=== PATIENT | female | born 1990 | race Caucasian/White ===

== ENCOUNTER 2018-04-29 16:30 | Emergency (ER) | payer BC ==
[2018-04-29 16:44] VITALS: BP 146/105
--- NOTE | 2018-04-29 17:28 | XRAY Report ---
Reason: fall, R wrist pain Procedure Date: 04/29/2018 Accession Number: [id number] / [id number] Procedure: XR - Wrist 4 View RT CPT Code: FULL RESULT: EXAM: RIGHT WRIST RADIOGRAPHY EXAM DATE: 04/29/2018 05:12 PM. CLINICAL HISTORY: Fall, R wrist pain. COMPARISON: None. TECHNIQUE: 4 views. FINDINGS: Bones: Normal. No fractures or bone lesions. Joints: Normal. No subluxations. Soft Tissues: Unremarkable. IMPRESSION: Normal wrist radiography. RAD[facility]
--- NOTE | 2018-04-29 17:34 | ED Physician Documentation ---
PD HPI UPPER EXT INJURY - Stated complaint Stated Complaint: GLF - WRIST INJURY - Chief complaint Chief Complaint: Trauma Ext - History obtained from History obtained from: Patient - History of Present Illness Location: Right, Wrist Type of injury: Fall Where injury occurred: Home Timing - onset: Yesterday - Additonal information Additional information: The patient is a 27-year-old female who fell yesterday on outstretched right hand when she tripped over her dog. She presents now with pain in her right wrist. She denies any other injuries. She is right-hand dominant. Review of Systems Constitutional: reports: Fever Skin: denies: Rash, Abrasion (s) Musculoskeletal: reports: Joint pain (Right wrist.). denies: Neck pain, Back pain Neurologic: denies: Focal weakness, Numbness, Head injury PD PAST MEDICAL HISTORY - Past Medical History Endocrine/Autoimmune: None - Allergies Allergies/Adverse Reactions: Allergies Allergy/AdvReac Type Severity Reaction Status Date / Time metronidazole [From Flagyl] Allergy Nausea Verified 04/29/18 16:37 - Social History Does the pt smoke?: No PD ED PE NORMAL - Vitals Vital signs reviewed: Yes (Initially hypertensive.) - General General: Alert and oriented X 3, Well developed/nourished - HEENT HEENT: Atraumatic - Respiratory Respiratory: No respiratory distress - Derm Derm: No rash - Extremities Extremities: Other (There is mild tenderness to palpation over the radiodorsal aspect of the right wrist. There is no swelling or deformity. There is no break in the integument. She can fully flex and extend her wrist as well as supinate and pronate the forearm. Distal neurovascular is intact.) - Neuro Neuro: Alert and oriented X 3, No motor deficit, No sensory deficit Results - Vitals Vitals: Oxygen O2 Source Room air - Rads (name of study) right wrist Radiology: Prelim report reviewed, EMP read contemporaneously, See rad report (Normal wrist radiography.) PD MEDICAL DECISION MAKING - ED course Complexity details: reviewed results, re-evaluated patient, considered differential, d/w patient ED course: The patient's presentation is most consistent with sprain of the right wrist. There is no evidence of fracture or dislocation on radiographic imaging. Treatment in the emergency department included application of a Velcro wrist splint. I discussed with her the expected course of injury, symptomatic treatment and outpatient follow-up, as well as potentially worrisome signs or symptoms that should prompt reevaluation in the emergency department. Departure - Departure Disposition: 01 Home, Self Care Clinical Impression: Right wrist sprain Qualifiers: Encounter type: initial encounter Qualified Code(s): S63.501A - Unspecified sprain of right wrist, initial encounter Condition: Stable Instructions: ED Sprain Wrist Comments: Wear the wrist splint if it provides comfort. You can use ibuprofen, up to 800 mg 3 times daily. Apply ice pack to your wrist intermittently for the next 3 or 4 days. Let pain be your guide to activity level. Follow-up with your primary physician within 2 weeks. Call to schedule an appointment. Return to the emergency department if you develop significantly increasing pain, numbness or weakness, or otherwise worsening symptoms. Discharge Date/Time: 04/29/18 17:47
== END 2018-04-29 17:47 | disposition home or self-care (01) ==
LOC: ED 16:30
DX: S63.501A Unspecified sprain of right wrist, initial encounter (principal); W01.0XXA Fall on same level from slipping, tripping and stumbling without subsequent striking against object, initial encounter; Y92.009 Unspecified place in unspecified non-institutional (private) residence as the place of occurrence of the external cause
CPT/HCPCS: 99282; 99283

== ENCOUNTER 2018-10-12 08:00 | Outpatient (CLI) | payer BC, MEDICAID ==
[2018-10-12 19:00] LABS: BASOPHILS # (AUTO) 0.1 10^3/uL (0.0-0.1); BASOPHILS % (AUTO) 0.7 %; EOSINOPHILS # (AUTO) 0.2 10^3/uL (0.0-0.7); EOSINOPHILS % (AUTO) 1.2 %; HGB - HEMOGLOBIN 12.2 g/dL (12.0-16.0); LYMPHOCYTES # (AUTO) 4.6 10^3/uL (1.5-3.5); LYMPHOCYTES % (AUTO) 26.6 %; MEAN CORPUSCULAR HEMOGLOBIN 25.5 pg (27.0-31.0); MEAN CORPUSCULAR HGB CONC 30.3 g/dL (32.0-36.0); MEAN CORPUSCULAR VOLUME 84.3 fL (81.0-99.0); MEAN PLATELET VOLUME 9.5 fL (7.9-10.8); MONOCYTES # (AUTO) 1.2 10^3/uL (0.0-1.0); MONOCYTES % (AUTO) 6.8 %; NEUTROPHILS # (AUTO) 11.1 10^3/uL (1.5-6.6); NEUTROPHILS % (AUTO) 63.6 %; PLT - PLATELET COUNT 444 10^3/uL (130-450); RED BLOOD COUNT 4.78 10^6/uL (4.20-5.40); RED CELL DISTRIBUTION WIDTH 13.9 % (12.0-15.0); WHITE BLOOD COUNT 17.5 x10^3/uL (4.8-10.8)
[2018-10-12 19:59] LABS: HB2 TOTAL 13.1 g/dL; HEMOGLOBIN A1C 0.56 g/dL; HEMOGLOBIN A1C % 6.1 % (4.6-6.2)
[2018-10-12 20:03] LABS: ALBUMIN 3.9 g/dL (3.2-5.5); ALBUMIN/GLOBULIN RATIO 1.1 (1.0-2.2); ALKALINE PHOSPHATASE 62 IU/L (42-121); ALT ALANINE AMINOTRANSFERASE 17 IU/L (10-60); AST ASPARTATE AMINOTRANSFERASE 18 IU/L (10-42); BILIRUBIN,TOTAL 0.6 mg/dL (0.2-1.0); BUN - BLOOD UREA NITROGEN 8 mg/dL (6-20); CALCIUM 9.6 mg/dL (8.5-10.3); CARBON DIOXIDE - CO2 23 mmol/L (21-32); CHLORIDE 104 mmol/L (101-111); CHOL/HDL RATIO 4.6 (<4.4); CHOLESTEROL 176 mg/dL; CREATININE 0.7 mg/dL (0.4-1.0); GFR - MDRD 100 (>89); GLUCOSE 87 mg/dL (70-100); HDL CHOLESTEROL 38 mg/dL; LDL CHOLESTEROL,CALCULATED 87 mg/dL; LDL/HDL RATIO 2.3 (<4.4); SODIUM 142 mmol/L (135-145); TOTAL PROTEIN 7.6 g/dL (6.7-8.2); VLDL CHOLESTEROL 51 mg/dL
== END 2018-10-12 23:59 | disposition home or self-care (01) ==
LOC: LAB.WCP 08:00
PROVIDERS: ATTEND Physician Assistant
DX: E11.42 Type 2 diabetes mellitus with diabetic polyneuropathy (principal); E78.5 Hyperlipidemia, unspecified
CPT/HCPCS: 36415; 80053; 80061; 82607; 83036; 83721; 85025

== ENCOUNTER 2018-10-19 18:54 | Emergency (ER) | payer BC, MEDICAID ==
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
[2018-10-19 21:59] VITALS: BP 144/98
== END 2018-10-19 21:58 | disposition home or self-care (01) ==
LOC: ED 18:54
DX: S92.531A Displaced fracture of distal phalanx of right lesser toe(s), initial encounter for closed fracture (principal); S90.121A Contusion of right lesser toe(s) without damage to nail, initial encounter; W20.8XXA Other cause of strike by thrown, projected or falling object, initial encounter; E10.40 Type 1 diabetes mellitus with diabetic neuropathy, unspecified; I10 Essential (primary) hypertension
CPT/HCPCS: 99282; 99283

== ENCOUNTER 2018-12-13 08:00 | Outpatient (CLI) | payer BC, MEDICAID ==
[2018-12-14 22:18] LABS: TRICHOMONAS VAGINALIS DNA NEGATIVE (NEGATIVE)
== END 2018-12-13 23:59 | disposition home or self-care (01) ==
LOC: LAB.R 08:00
PROVIDERS: ATTEND Obstetrics & Gynecology
DX: R10.2 Pelvic and perineal pain (principal)
CPT/HCPCS: 87491; 87591; 87661

== ENCOUNTER 2018-12-14 16:32 | Outpatient (CLI) | payer MEDICAID ==
--- NOTE | 2018-12-15 10:20 | XRAY Report ---
Reason: UNSPECIFIED FRACTURE OF UNSPECIFIED TOES, INITIAL Procedure Date: 12/14/2018 Accession Number: [id number] / [id number] Procedure: XR - Foot 3 View RT CPT Code: FULL RESULT: EXAM: RIGHT FOOT RADIOGRAPHY EXAM DATE: 12/14/2018 05:09 PM. CLINICAL HISTORY: Continued pain after right fourth toe fracture for 6 weeks. COMPARISON: FOOT 3 VIEW RT 10/19/2018 8:34 PM. TECHNIQUE: 3 views. FINDINGS: Bones: Mild posterior and inferior calcaneal spurring is noted. The distal phalangeal fracture of the fourth distal phalanx remains nonunited with partial interval osseous resorption and no evidence of osseous bridging. No new fractures or bone lesions. Joints: Normal. No subluxations. Soft Tissues: Normal. No soft tissue swelling. IMPRESSION: Nonunited fracture. [facility]
== END 2018-12-14 16:33 | disposition home or self-care (01) ==
LOC: DI 16:32
PROVIDERS: ATTEND Physician Assistant
DX: S92.5 Fracture of lesser toe(s) (principal)

== ENCOUNTER 2018-12-20 08:49 | Outpatient (CLI) | payer MEDICAID ==
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
== END 2018-12-20 08:50 | disposition home or self-care (01) ==
LOC: DI 08:49
PROVIDERS: ATTEND Physician Assistant
DX: N91.2 Amenorrhea, unspecified (principal)
CPT/HCPCS: 76830; 76856

== ENCOUNTER 2018-12-27 11:30 | Outpatient (CLI) | payer MEDICAID | END 2018-12-27 11:31 | disposition home or self-care (01) | LOC: LAB 11:30 | PROVIDERS: ATTEND Obstetrics & Gynecology | DX: Z01.818 Encounter for other preprocedural examination (principal); N84.0 Polyp of corpus uteri | CPT/HCPCS: 86850; 86900; 86901 ==

== ENCOUNTER 2018-12-28 05:58 | Day surgery (SDC) | payer MEDICAID ==
[2018-12-28] MEDS ORDERED: ROCURONIUM 50 MG/5 ML VIAL IVP ONE (05:59)
[2018-12-28] MEDS ORDERED: GLYCOPYRROLATE 1 MG/5 ML VIAL IVP ONE (05:59)
[2018-12-28] MEDS ORDERED: KETOROLAC 30 MG/ML VIAL IVP ONE (05:59)
[2018-12-28] MEDS ORDERED: NEOSTIGMINE 1 MG/1 ML 10 ML MDV IVP ONE (05:59)
[2018-12-28] MEDS ORDERED: DEXAMETHASONE 4 MG/ML VIAL IVP ONE (05:59)
[2018-12-28] MEDS ORDERED: MIDAZOLAM 2 MG/2 ML VIAL IVP ONE (05:59)
[2018-12-28] MEDS ORDERED: CEFAZOLIN SODIUM IN 0.9 % NACL 2 GM/100 ML BAG IV ONE (06:34)
[2018-12-28 06:50] LABS: HCG UR QUAL NEGATIVE
[2018-12-28] MEDS ORDERED: LACTATED RINGERS 1,000 ML IV ONE ×4 (07:00→08:59)
--- NOTE | 2018-12-28 07:15 | ANESTHESIA ---
Pre-Anesthesia VS, & Labs - Diagnosis endometrial polyps - Procedure hysteroscopy, DnC Vital Signs: Temp Pulse Resp BP Pulse Ox 36.4 C L 93 18 149/89 H 98 12/28/18 06:20 12/28/18 06:20 12/28/18 06:20 12/28/18 06:20 12/28/18 06:20 Height 5 ft 7 in Weight (kg) 149.3 kg Body Mass Index 51.7 - Is Patient ?: No (HCG negative) - Lab Results Current Lab Results: Laboratory Tests 12/28/18 07:06: POC Whole Bld Glucose 120 H Home Medications and Allergies Home Medications: Ambulatory Orders traMADol [Ultram] 50 mg PO Q4-6H 12/27/18 Gabapentin 600 mg PO QPM 12/14/18 traMADol [Ultram] 50 mg PO Q4-6H 12/27/18 Allergies/Adverse Reactions: Allergies Allergy/AdvReac Type Severity Reaction Status Date / Time metronidazole [From Flagyl] Allergy projectile Verified 12/27/18 11:11 vomiting Anes History & Medical History - Anesthetic History Anesthesia Complications: reports: No previous complications Family history of Anesthesia Complications: Denies Family history of Malignant Hyperthermia: Denies - Medical History Cardiovascular: reports: Hypertension Pulmonary: reports: None Gastrointestinal: reports: Other (IBS. has had multiple colonoscopies) Urinary: reports: None Neuro: reports: None Musculoskeletal: reports: None Endocrine/Autoimmune: reports: Type 1 diabetes (denies taking any medications. reports a1c 6.0. bs 120) Blood Disorders: reports: None Skin: reports: None Smoking Status: Never smoker Psychosocial: reports: Anxiety - Surgical History General: Cholecystectomy Eyes Ears Nose Throat (EENT): Tonsil/Adenoidectomy Exam Mouth Openin Fingerbreadth Mallampati classification: I Thyromental Distance: 4-6 cm Respiratory: Lungs clear, Normal breath sounds, No respiratory distress, No accessory muscle use Cardiovascular: Regular rate, Normal S1, Normal S2, No murmurs Abdomen: Normal bowel sounds, Soft, No tenderness, No hepatospenomegaly, No masses Extremities: No clubbing, No cyanosis, No edema, Normal pulses, No tenderness/swelling Neurological: Normal gait, Normal speech, Strength at 5/5 X4 ext, Normal tone, Sensation intact, Cranial nerves 3-12 NL, Reflexes 2+ Mental/Cognitive Status: Alert/Oriented X3, Normal for patient Cognitive Status: Within normal limits Plan Anesthesia Type: General Consent for Procedure(s) Verified and Reviewed: Yes Code Status: Attempt Resuscitation ASA classification: 2-Mild systemic disease (BMI 51) Is this case an emergency?: No
[2018-12-28] MEDS ORDERED: BUPIVACAINE 0.5%-EPI 1:200000 PF 30 ML VIAL ONE (07:22)
[2018-12-28] MEDS ORDERED: BUPIVACAINE 0.5%-EPI 1:200000 PF 30 ML VIAL SUBQ ONE (08:31)
[2018-12-28] MEDS ORDERED: LORazepam 2 MG/ML VIAL IVP PRN (09:03)
[2018-12-28] MEDS ORDERED: ONDANSETRON 4 MG/2 ML VIAL IVP PRN (09:03)
[2018-12-28] MEDS ORDERED: HYDROcod/ACETAM 5/325 MG TABLET PO PRN (09:03)
[2018-12-28] MEDS ORDERED: oxyCODONE 5 MG TABLET PO PRN (09:03)
--- NOTE | 2018-12-28 09:09 | OPERATIVE REPORT ---
Operative Report - General Procedure Date: 12/28/18 Planned Procedure: Hysterscopy with D&C Pre-Op Diagnosis: Endometrial polyp menorrhagia Procedure Performed: Hysterscopic resection of endometrial polyp. D&C Post Op Diagnosis: menorrhagia Endometrial polyp - Procedure Note Primary Surgeon: Edenilson Kingsley MD Anesthesia Provider: Divya Beltran Anesthesia Technique: General ET tube Pathology: Endometrial Polyp IV Fluids (mL): 1,000 Estimated Blood Loss (mL): 5 Indications: menorrhagia Findings: Anterior attached endometrial Polyp Complications: none hysterscopic fluid deficit 200 ml
[2018-12-28] MEDS ORDERED: ACETAMINOPHEN 1,000 MG/100 ML 100 ML IV ONE (09:19)
[2018-12-28] MEDS ORDERED: HYDROmorphone 1 MG/ML CARPUJECT ONE (09:19)
[2018-12-28] MEDS ORDERED: fentaNYL 100 MCG/2 ML VIAL ONE (09:19)
--- NOTE | 2018-12-28 10:40 | OPERATIVE REPORT ---
DATE OF SERVICE: 12/28/2018 Physician: Edenilson Kingsley MD PREOPERATIVE DIAGNOSES: Menorrhagia, endometrial polyp. POSTOPERATIVE DIAGNOSES: Menorrhagia, endometrial polyp. PROCEDURE PERFORMED: Hysteroscopic resection of submucosal endometrial polyp. SURGEON: Edenilson Kingsley MD ANESTHESIA: Karis Beltran CRNA ANESTHETIC: General via endotracheal tube. IV FLUIDS: 1000 mL ESTIMATED BLOOD LOSS: Minimal. FLUID DEFICIT: 200 mL FINDINGS: Pelvic examination was unrewarding secondary to abdominal wall thickness. The uterus was sounded to 8 cm. Upon introducing the hysteroscope, there was evidence of an endometrial polyp, whic h was attached to the anterior portion of the uterus. PROCEDURE: Following adequate endotracheal anesthesia, patient was placed in the dorsal lithotomy po sition in Donald stirrups. She was then prepped and draped in the usual fashion. A timeout was perfo rmed, patient concerns were addressed. Because of her extra weight, she was given another gram of An cef. At this point, a speculum was placed in the vagina. The cervix was visualized and grasped with a single-tooth tenaculum. The uterus was then sounded to 8 cm. A 6 mm intrauterine dilator was the n placed, and there was evidence of the cervix was already being dilated. A video hysteroscope was p laced. Both corners were visualized and noted to be free of disease. There was evidence of a large anterior polyp. The remainder of the endometrial cavity appeared to be free of additional polyps at this point, the hysteroscopic resectoscope was introduced. The endometrial cavity and polyp were all cleared. The cervix was then noted to already be dilated to 11 mm. The endometrial cavity was then sharply curetted in all 4 quadrants. The hysteroscope was reintroduced. The endometrial cavity was free of polyps or evidence of any other further tissue. At this point, the procedure was terminated . The cervix was released from the single-tooth tenaculum. Patient tolerated the procedure well and was taken to recovery in stable condition. Sponge and needle counts were correct. TD: 12/28/2018 09:18
[2018-12-28 11:28] VITALS: BP 110/68
== END 2018-12-28 05:59 | disposition home or self-care (01) ==
LOC: SDS 05:58
PROVIDERS: ATTEND Obstetrics & Gynecology
PROC: 0UDB7ZZ Extraction of Endometrium, Via Natural or Artificial Opening (ICD-10-PCS; 2018-12-28)
PROC: 0UB98ZZ Excision of Uterus, Via Natural or Artificial Opening Endoscopic (ICD-10-PCS; principal; 2018-12-28 07:30)
DX: N84.0 Polyp of corpus uteri (principal); N92.0 Excessive and frequent menstruation with regular cycle; E66.9 Obesity, unspecified; I10 Essential (primary) hypertension; Z79.899 Other long term (current) drug therapy; Z68.43 Body mass index [BMI] 50.0-59.9, adult; Z86.39 Personal history of other endocrine, nutritional and metabolic disease
CPT/HCPCS: 58558; 81025; 86850; 86900; 86901; A9270; J0131; J0690; J1170; J7120

== ENCOUNTER 2019-05-18 17:24 | Emergency (ER) | payer MEDICAID ==
[2019-05-18] MEDS ORDERED: KETOROLAC 30 MG/ML VIAL IVP STA (17:43)
[2019-05-18 18:10] LABS: BASOPHILS # (AUTO) 0.2 10^3/uL (0.0-0.1); BASOPHILS % (AUTO) 0.6 %; HGB - HEMOGLOBIN 13.3 g/dL (12.0-16.0); LYMPHOCYTES # (AUTO) 2.1 10^3/uL (1.5-3.5); MEAN CORPUSCULAR HEMOGLOBIN 25.9 pg (27.0-31.0); MEAN CORPUSCULAR HGB CONC 32.4 g/dL (32.0-36.0); MONOCYTES # (AUTO) 1.9 10^3/uL (0.0-1.0); MONOCYTES % (AUTO) 6.1 %; NEUTROPHILS # (AUTO) 25.9 10^3/uL (1.5-6.6); PLT - PLATELET COUNT 378 10^3/uL (130-450); RED BLOOD COUNT 5.14 10^6/uL (4.20-5.40); RED CELL DISTRIBUTION WIDTH 13.3 % (12.0-15.0); WHITE BLOOD COUNT 30.5 x10^3/uL (4.8-10.8)
[2019-05-18 18:18] LABS: CALCIUM 9.1 mg/dL (8.5-10.3); CREATININE 0.8 mg/dL (0.4-1.0)
--- NOTE | 2019-05-18 18:20 | ED Physician Documentation ---
<DaisyKev downs - Last Filed: 05/18/19 18:46> History of Present Illness - Stated complaint Stated Complaint: N/V/D, SHAKES - Chief complaint Chief Complaint: Abd Pain - History obtained from History obtained from: Patient (28-year-old female comes in today with chief complaint nausea, vomiting, "I just feel terrible". She states that it started occurring around 1:00 this afternoon with chills, and nausea. She did vomit once at home. She feels warm, but did not take her temperature at home. She is febrile here in the ER today 39.4. 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 She does state that she was a diabetic several years ago but she is been off her medications she does not check her sugars daily.) Review of Systems Constitutional: reports: Fever, Chills. denies: Fatigue Eyes: reports: Reviewed and negative Ears: reports: Reviewed and negative Nose: reports: Reviewed and negative Throat: reports: Reviewed and negative Cardiac: denies: Chest pain / pressure, Palpitations GI: reports: Nausea, Vomiting Skin: denies: Rash, Lesions PD PAST MEDICAL HISTORY - Past Medical History Endocrine/Autoimmune: Type 2 diabetes, Other (Bone biopsy approximately 1 month ago, Came back normal..Patient states her white blood cells normally however around 18,000.) - Allergies Allergies/Adverse Reactions: Allergies Allergy/AdvReac Type Severity Reaction Status Date / Time metronidazole [From Flagyl] Allergy Unknown Verified 05/18/19 17:37 PD ED PE NORMAL - Vitals Vital signs reviewed: Yes - General General: Alert and oriented X 3, Well developed/nourished - HEENT HEENT: Atraumatic, PERRL, EOMI, Ears normal, Moist mucous membranes, Pharynx benign - Neck Neck: No adenopathy - Cardiac Cardiac: RRR, No murmur - Respiratory Respiratory: No respiratory distress, Clear bilaterally - Abdomen Abdomen: Soft, Non tender, Non distended - Back Back: No CVA TTP - Derm Derm: Normal color, Warm and dry, No rash Departure - Departure Disposition: Home, Self Care Clinical Impression: Fever Qualifiers: Fever type: unspecified Qualified Code(s): R50.9 - Fever, unspecified Leukocytosis Qualifiers: Leukocytosis type: unspecified Qualified Code(s): D72.829 - Elevated white blood cell count, unspecified Condition: Stable Instructions: ED Fever Unconf Cause, ED Fever Control Follow-Up: Elizabeth Weir PA [Primary Care Provider] - Tomorrow <Torres Carter - Last Filed: 05/18/19 20:54> Results - Vitals Vitals: Vital Signs - 24 hr 05/18/19 05/18/19 05/18/19 17:30 19:22 20:17 Temperature 39.4 C H 98.3 C H 37.2 C Heart Rate 120 H 118 H Respiratory 20 20 Rate Blood Pressure 128/75 O2 Saturation 96 93 Oxygen O2 Source Room air - Labs Labs: Laboratory Tests 05/18/19 05/18/19 05/18/19 18:01 18:01 18:01 WBC 30.5 H RBC 5.14 Hgb 13.3 Hct 41.1 MCV 80.0 L MCH 25.9 L MCHC 32.4 RDW 13.3 Plt Count 378 MPV 9.0 Neut # (Auto) 25.9 H Lymph # (Auto) 2.1 [place] # (Auto) 1.9 H Eos # (Auto) 0.0 Baso # (Auto) 0.2 H Absolute Nucleated RBC 0.00 Band Neuts % (Manual) Not Reportable Abnorm Lymph % (Manual) Not Reportable Nucleated RBC % 0.0 Neutrophils # (Manual) Not Reportable Lymphocytes # (Manual) Not Reportable Monocytes # (Manual) Not Reportable Eosinophils # (Manual) Not Reportable Basophils # (Manual) Not Reportable Differential Comment MANUAL=AUTO DIFF Manual Slide Review Indicated Platelet Estimate NORMAL (130-450,000) Platelet Morphology NORMAL APPEARANCE RBC Morph Micro Appear NORMAL APPEARANCE Sodium 135 Potassium 3.7 Chloride 98 L Carbon Dioxide 24 Anion Gap 13.0 BUN 11 Creatinine 0.8 Estimated GFR (MDRD) 85 L Glucose 158 H Lactic Acid 2.5 H Calcium 9.1 Total Bilirubin Direct Bilirubin AST ALT Alkaline Phosphatase Total Protein Albumin Globulin Lipase Urine Color Urine Clarity Urine pH Ur Specific [place] Urine Protein Urine Glucose (UA) Urine Ketones Urine Occult Blood Urine Nitrite Urine Bilirubin Urine Urobilinogen Ur Leukocyte Esterase Ur Microscopic Review Urine Culture Comments Urine HCG, Qual Influenza A (Rapid) Influenza B (Rapid) 05/18/19 05/18/19 05/18/19 18:01 18:10 20:05 WBC RBC Hgb Hct MCV MCH MCHC RDW Plt Count MPV Neut # (Auto) Lymph # (Auto) [place] # (Auto) Eos # (Auto) Baso # (Auto) Absolute Nucleated RBC Band Neuts % (Manual) Abnorm Lymph % (Manual) Nucleated RBC % Neutrophils # (Manual) Lymphocytes # (Manual) Monocytes # (Manual) Eosinophils # (Manual) Basophils # (Manual) Differential Comment Manual Slide Review Platelet Estimate Platelet Morphology RBC Morph Micro Appear Sodium Potassium Chloride Carbon Dioxide Anion Gap BUN Creatinine Estimated GFR (MDRD) Glucose Lactic Acid Calcium Total Bilirubin 0.7 Direct Bilirubin < 0.1 L AST 22 ALT 15 Alkaline Phosphatase 78 Total Protein 8.0 Albumin 4.0 Globulin 4.0 Lipase 20 L Urine Color DARK YELLOW Urine Clarity CLEAR Urine pH 7.0 Ur Specific [place] 1.010 Urine Protein TRACE Urine Glucose (UA) NEGATIVE Urine Ketones NEGATIVE Urine Occult Blood NEGATIVE Urine Nitrite NEGATIVE Urine Bilirubin NEGATIVE Urine Urobilinogen 0.2 (NORMAL) Ur Leukocyte Esterase NEGATIVE Ur Microscopic Review NOT INDICATED Urine Culture Comments NOT INDICATED Urine HCG, Qual Influenza A (Rapid) Negative Influenza B (Rapid) Negative 05/18/19 20:05 WBC RBC Hgb Hct MCV MCH MCHC RDW Plt Count MPV Neut # (Auto) Lymph # (Auto) [place] # (Auto) Eos # (Auto) Baso # (Auto) Absolute Nucleated RBC Band Neuts % (Manual) Abnorm Lymph % (Manual) Nucleated RBC % Neutrophils # (Manual) Lymphocytes # (Manual) Monocytes # (Manual) Eosinophils # (Manual) Basophils # (Manual) Differential Comment Manual Slide Review Platelet Estimate Platelet Morphology RBC Morph Micro Appear Sodium Potassium Chloride Carbon Dioxide Anion Gap BUN Creatinine Estimated GFR (MDRD) Glucose Lactic Acid Calcium Total Bilirubin Direct Bilirubin AST ALT Alkaline Phosphatase Total Protein Albumin Globulin Lipase Urine Color Urine Clarity Urine pH Ur Specific [place] 1.010 Urine Protein Urine Glucose (UA) Urine Ketones Urine Occult Blood Urine Nitrite Urine Bilirubin Urine Urobilinogen Ur Leukocyte Esterase Ur Microscopic Review Urine Culture Comments Urine HCG, Qual NEGATIVE Influenza A (Rapid) Influenza B (Rapid) PD MEDICAL DECISION MAKING - ED course Complexity details: reviewed old records (no previous labs to compare patients elevated wbc.), re-evaluated patient (20:42 patient revaluated, she is afebrile, HR in the 90s on PE, ua unremarkable, neg flu, neg cxr, patient well appearing on exam, i did offer admission for observation however patient would like to be discharged home and follow up with her heme/onc tomorrow. patient has medical decision making capability and capacity and accepts all risks to include and or permanent disability. ), other (patient originally seen by the [facility]. please see note. Patient reports she has a known history of chronically elevated wbc and has been seen by heme/onc and states she has had a normal bone marrow biopsy. she reports to me 2 loose bms/1 episode of emesis and now feels better after receiving IVF. she is now afebrile and is feeling better and is requesting to be dcd home. she denies any recent travel outside the country, denies any abx use, denies bloody diarrhea, denies abd pain, denies freire/rash/neck pain. her lactate was noted to be elevated and an elevated wbc with no previous to compare to, patient is requesting to go home at this point. i feel this is reasonable, the patient states she has f/u tomorrow with her pcp as well as her heme/onc provider. )
[2019-05-18] MEDS ORDERED: SODIUM CHLORIDE 0.9% 2,000 ML IV ONE (18:35)
[2019-05-18 18:37] LABS: DIFFERENTIAL COMMENT MANUAL=AUTO DIFF; PLATELET ESTIMATE, MANUAL NORMAL (130-450,000) (NORMAL); PLATELET MORPHOLOGY NORMAL APPEARANCE (NORMAL); RBC MORPHOLOGY (MULTIPLE) NORMAL APPEARANCE (NORMAL)
[2019-05-18 18:51] LABS: ALKALINE PHOSPHATASE 78 IU/L (42-121); ALT ALANINE AMINOTRANSFERASE 15 IU/L (10-60); AST ASPARTATE AMINOTRANSFERASE 22 IU/L (10-42); BILIRUBIN,TOTAL 0.7 mg/dL (0.2-1.0); LIPASE 20 U/L (22-51)
[2019-05-18 18:52] LABS: BILIRUBIN,DIRECT < 0.1 mg/dL (0.1-0.5)
--- NOTE | 2019-05-18 18:55 | XRAY Report ---
Reason: cough Procedure Date: 05/18/2019 Accession Number: [id number] / [id number] Procedure: XR - Chest 2 View X-Ray CPT Code: 90834 Final Report FULL RESULT: EXAM: CHEST RADIOGRAPHY EXAM DATE: 05/18/2019 06:42 PM. CLINICAL HISTORY: Cough. Nausea, vomiting, dizziness, fever today. COMPARISON: None. TECHNIQUE: 2 views. FINDINGS: Lungs/Pleura: No focal opacities evident. No peribronchial cuffing or interstitial abnormality. No pleural effusion. No pneumothorax. Normal volumes. Mediastinum: Heart and mediastinal contours are unremarkable. Other: No gaseous distention of the stomach. No pneumoperitoneum. IMPRESSION: Normal 2-view chest radiography. [facility]
[2019-05-18 20:25] LABS: BILIRUBIN,URINE NEGATIVE (NEGATIVE); GLUCOSE, URINE (UA) NEGATIVE (NEGATIVE); KETONES,URINE (UA) NEGATIVE (NEGATIVE); LEUKOCYTE ESTERASE, URINE NEGATIVE (NEGATIVE); NITRITE,URINE NEGATIVE (NEGATIVE); OCCULT BLOOD,URINE NEGATIVE (NEGATIVE); PROTEIN,URINE TRACE mg/dL (NEGATIVE); UROBILINOGEN,URINE 0.2 (NORMAL) E.U./dL (NORMAL)
[2019-05-18 20:28] LABS: CLARITY,URINE CLEAR (CLEAR)
[2019-05-18 20:29] LABS: HCG UR QUAL NEGATIVE
[2019-05-18 20:53] VITALS: BP 114/61
== END 2019-05-18 20:55 | disposition home or self-care (01) ==
LOC: ED 17:24 → MERGE 17:24 → ED 20:55
DX: R50.9 Fever, unspecified (principal); D72.829 Elevated white blood cell count, unspecified; E11.9 Type 2 diabetes mellitus without complications
CPT/HCPCS: 36415; 71046; 80048; 80076; 81001; 81003; 81025; 83605; 83690; 85025; 87040; 87086; 87275; 87276; 96361; 96374; 99284

== ENCOUNTER 2019-05-19 07:21 | Emergency (ER) | payer MEDICAID ==
[2019-05-19] MEDS ORDERED: cefTRIAXone 1 GM VIAL IM STA (07:45)
[2019-05-19] MEDS ORDERED: LIDOCAINE 1% 2 ML VIAL MC ONE (07:45)
--- NOTE | 2019-05-19 07:53 | ED Physician Documentation ---
History of Present Illness - Stated complaint Stated Complaint: L LEG PX AND SWELLING - Chief complaint Chief Complaint: Ext Problem - History obtained from History obtained from: Patient - History of Present Illness Timing: Today Pain level max: 3 Pain level now: 3 - Additonal information Additional information: 28-year-old female presents the emergency department stating that she has swelling to the left lower extremity. She states redness as well that she noticed this morning. Seen here last night for feeling unwell, emesis x1 and diarrhea x2. She has a known chronic leukocytosis. She states she is feeling better this morning but noticed the redness on her leg today. She states it was not red last night. Nothing makes it better or worse. Review of Systems Ten Systems: 10 systems reviewed and negative Constitutional: denies: Fever, Chills Throat: denies: Sore throat Cardiac: denies: Chest pain / pressure Respiratory: denies: Cough GI: denies: Abdominal Pain, Nausea, Vomiting, Diarrhea Skin: denies: Rash Musculoskeletal: denies: Neck pain, Back pain Neurologic: denies: Headache PD PAST MEDICAL HISTORY - Past Medical History Past Medical History: Yes Endocrine/Autoimmune: Type 2 diabetes, Other - Past Surgical History Past Surgical History: No HEENT: Tonsil/Adenoidectomy - Present Medications Home Medications: Ambulatory Orders Medication Instructions Recorded Confirmed Clindamycin HCl [Clindamycin 300MG 300 mg PO Q6H #40 capsule 05/19/19 CAP] - Allergies Allergies/Adverse Reactions: Allergies Allergy/AdvReac Type Severity Reaction Status Date / Time metronidazole [From Flagyl] Allergy Unknown Verified 05/18/19 17:37 - Social History Does the pt smoke?: No Smoking Status: Never smoker Does the pt drink ETOH?: No Does the pt have substance abuse?: No - Immunizations Immunizations: TDAP >10years/unknown PD ED PE NORMAL - Vitals Vital signs reviewed: Yes - General General: Alert and oriented X 3, No acute distress, Well developed/nourished - HEENT HEENT: Moist mucous membranes - Neck Neck: Supple, no meningeal sign - Cardiac Cardiac: RRR, Strong equal pulses - Respiratory Respiratory: No respiratory distress, Clear bilaterally - Abdomen Abdomen: Soft, Non tender, Non distended - Derm Derm: Warm and dry - Extremities Extremities: Other (Erythema to the anterior and medial aspect of the left calf, this extends from the knee to the ankle. Blanches easily. Warm. No fluctuance or abscess. Neurovascularly intact. No calf tenderness) - Neuro Neuro: Alert and oriented X 3 - Psych Psych: Normal mood, Normal affect Results - Vitals Vitals: Vital Signs - 24 hr 05/19/19 07:34 Temperature 37.4 C Heart Rate 117 H Respiratory 18 Rate Blood Pressure 133/84 H O2 Saturation 99 Oxygen O2 Source Room air PD MEDICAL DECISION MAKING - ED course Complexity details: reviewed old records, considered differential, d/w patient ED course: Patient with a left lower extremity cellulitis. No evidence of DVT. Given Rocephin here. Will place on clindamycin for home as she is sulfa allergic. We will have her monitor her leg closely. Wound edges were marked and she was given strict return precautions. Patient counseled regarding signs and symptoms for which I believe and urgent re-evaluation would be necessary. Patient with good understanding of and agreement to plan and is comfortable going home at this time This document was made in part using voice recognition software. While efforts are made to proofread this document, sound alike and grammatical errors may occur. Departure - Departure Disposition: Home, Self Care Clinical Impression: Left leg cellulitis Condition: Good Instructions: ED Infec Skin Cellulitis Follow-Up: Elizabeth Weir PA [Primary Care Provider] - Within 3 Days Prescriptions: Clindamycin HCl [Clindamycin 300MG CAP] 300 mg PO Q6H #40 capsule Comments: Take all antibiotics until gone. You should notice that the redness is decreasing by tomorrow. Return sooner if you develop more fevers, the redness is extending up your leg or you are not improving as expected. Start the clindamycin today as well.
[2019-05-19 08:41] VITALS: BP 144/88
== END 2019-05-19 08:42 | disposition home or self-care (01) ==
LOC: MERGE 07:21 → ED 07:21
DX: L03.116 Cellulitis of left lower limb (principal); E11.9 Type 2 diabetes mellitus without complications
CPT/HCPCS: 96372; 99283; 99284

== ENCOUNTER 2019-05-21 17:54 | Inpatient (IN) | payer MEDICAID ==
[2019-05-21 18:13] LABS: BASOPHILS # (AUTO) 0.1 10^3/uL (0.0-0.1); BASOPHILS % (AUTO) 0.8 %; EOSINOPHILS # (AUTO) 0.1 10^3/uL (0.0-0.7); EOSINOPHILS % (AUTO) 0.9 %; HGB - HEMOGLOBIN 11.7 g/dL (12.0-16.0); LYMPHOCYTES # (AUTO) 3.1 10^3/uL (1.5-3.5); LYMPHOCYTES % (AUTO) 22.5 %; MEAN CORPUSCULAR HGB CONC 29.7 g/dL (32.0-36.0); MEAN CORPUSCULAR VOLUME 84.2 fL (81.0-99.0); MEAN PLATELET VOLUME 9.4 fL (7.9-10.8); MONOCYTES # (AUTO) 1.7 10^3/uL (0.0-1.0); NEUTROPHILS # (AUTO) 8.8 10^3/uL (1.5-6.6); NEUTROPHILS % (AUTO) 63.1 %; PLT - PLATELET COUNT 357 10^3/uL (130-450); RED BLOOD COUNT 4.68 10^6/uL (4.20-5.40); RED CELL DISTRIBUTION WIDTH 14.2 % (12.0-15.0); WHITE BLOOD COUNT 13.9 x10^3/uL (4.8-10.8)
[2019-05-21] MEDS ORDERED: VANCOMYCIN INJ 2 GM in SODIUM CHLORIDE 0.9% 500 ML IV STA (18:19)
[2019-05-21] MEDS ORDERED: ACYCLOVIR 200 MG CAPSULE PO STA (18:20)
[2019-05-21] MEDS ORDERED: HYDROmorphone 1 MG/ML CARPUJECT IVP STA (18:22)
--- NOTE | 2019-05-21 18:28 | ED Physician Documentation ---
History of Present Illness - Stated complaint Stated Complaint: left leg px - Chief complaint Chief Complaint: Ext Problem - History obtained from History obtained from: Patient (28-year-old woman with chronic leukocytosis diagnosed in her teenage years. She is had 2- bone marrow biopsies per her and her baseline white count is 18,000. She was seen here 3 days ago with shaking chills nausea and vomiting. She had a white count of 30,000 but no source was found. Blood cultures obtained on that day have been no growth to date. She was here the next morning and developed a left lower extremity cellulitis which was treated with Rocephin and subsequently a prescription of clindamycin which she has been taking since. Despite that she continues to have increasing pain and swelling of the left lower extremity with some left groin pain.) Review of Systems Ten Systems: 10 systems reviewed and negative Constitutional: reports: Fever, Chills Nose: denies: Rhinorrhea / runny nose, Congestion Throat: denies: Dental pain / toothache, Sore throat Cardiac: denies: Chest pain / pressure, Palpitations Respiratory: denies: Dyspnea, Cough GI: denies: Abdominal Pain PD PAST MEDICAL HISTORY - Past Medical History Cardiovascular: Hypertension Respiratory: None Neuro: None Endocrine/Autoimmune: Type 1 diabetes, Type 2 diabetes, Other 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 : None HEENT: None Psych: None Musculoskeletal: None Derm: None - Past Surgical History Past Surgical History: No General: Cholecystectomy HEENT: Tonsil/Adenoidectomy - Present Medications Home Medications: Ambulatory Orders Medication Instructions Recorded Confirmed Gabapentin 600 mg PO QPM 12/14/18 01/18/19 traMADol [Ultram] 50 mg PO Q4-6H 12/27/18 01/18/19 Clindamycin HCl [Clindamycin 300MG 300 mg PO Q6H #40 capsule 05/19/19 CAP] - Allergies Allergies/Adverse Reactions: Allergies Allergy/AdvReac Type Severity Reaction Status Date / Time metronidazole [From Flagyl] Allergy projectile Verified 05/19/19 09:33 vomiting - Social History Does the pt smoke?: No Smoking Status: Never smoker Does the pt drink ETOH?: No Does the pt have substance abuse?: No - Immunizations Immunizations are current?: Yes Immunizations: TDAP >10years/unknown - POLST Patient has POLST: No PD ED PE NORMAL - Vitals Vital signs reviewed: Yes - General General: Alert and oriented X 3, Other (She appears uncomfortable from the pain) - HEENT HEENT: PERRL, EOMI, Other (She has periorbital herpes simplex) - Neck Neck: Supple, no meningeal sign, No bony TTP - Cardiac Cardiac: RRR, No murmur - Respiratory Respiratory: No respiratory distress, Clear bilaterally - Abdomen Abdomen: Normal bowel sounds, Soft, Non tender - Back Back: No CVA TTP, No spinal TTP - Derm Derm: Normal color, Warm and dry - Extremities Extremities: Other (She has significant edema of the left lower extremity with a cellulitis of the anterior part of the left leg running from ankle up to the knee. It is basically at the borders that were marked 2 days ago not last not further but she said the swelling is worse.) - Neuro Neuro: Alert and oriented X 3, Normal speech Results - Vitals Vitals: Vital Signs - 24 hr 05/21/19 17:55 Temperature 37 C Heart Rate 99 Respiratory 16 Rate Blood Pressure 144/96 H O2 Saturation 97 Oxygen O2 Source Room air - Labs Labs: Laboratory Tests 05/21/19 18:00 WBC 13.9 H RBC 4.68 Hgb 11.7 L Hct 39.4 MCV 84.2 MCH 25.0 L MCHC 29.7 L RDW 14.2 Plt Count 357 MPV 9.4 Neut # (Auto) 8.8 H Lymph # (Auto) 3.1 [place] # (Auto) 1.7 H Eos # (Auto) 0.1 Baso # (Auto) 0.1 Absolute Nucleated RBC 0.00 Nucleated RBC % 0.0 PD MEDICAL DECISION MAKING - ED course ED course: This is a 28-year-old woman with chronic unexplained leukocytosis who presents with a failure of outpatient treatment for the left lower extremity cellulitis. She was administered vancomycin after repeat blood cultures and also acyclovir for the perioral herpes simplex. Spoke with the hospitalist for admission at 6:13 PM. Departure - Departure Disposition: [facility] DC/Xfer Clinical Impression: Left leg cellulitis, Herpes simplex Leukocytosis Qualifiers: Leukocytosis type: leukemoid reaction Qualified Code(s): D72.823 - Leukemoid reaction Condition: Serious
[2019-05-21 18:29] LABS: ALBUMIN 3.5 g/dL (3.2-5.5); ALBUMIN/GLOBULIN RATIO 0.8 (1.0-2.2); BILIRUBIN,TOTAL 0.4 mg/dL (0.2-1.0); CALCIUM 8.9 mg/dL (8.5-10.3); CREATININE 0.7 mg/dL (0.4-1.0); TOTAL PROTEIN 7.9 g/dL (6.7-8.2)
[2019-05-21] MEDS ORDERED: ACETAMINOPHEN 325 MG TABLET PO STA (18:53)
[2019-05-21] MEDS ORDERED: SODIUM CHLORIDE 0.9% 1,000 ML IV SCH (19:00)
--- NOTE | 2019-05-21 19:38 | HISTORY & PHYSICAL EXAMINATION ---
Chief Complaint - Chief Complaint Chief Complaint: Left leg swelling and pain History of Present Illness - Admitted From Admitted From:: Home - History Obtained From Records Reviewed: Yes History obtained from: Patient, ER Physician, EMR - History of Present Illness HPI Comment/Other: This is a 28-year-old female with a past medical history significant for chronic leukocytosis, type 2 diabetes mellitus, and obesity who presents today complaining of worsening left lower extremity pain and swelling. She was seen in the emergency department on May 17 for abdominal pain associated with nausea, vomiting, and diarrhea. At that time she found afebrile with a temperature of 39.4 C. Her white count was also elevated at 30.5 which is above her baseline of 18. There were no obvious source of infection found at that time as her influenza was negative as well as a urinalysis and chest x-ray. 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 She states that since then, she no longer felt febrile and has no further episodes of nausea or vomiting and diarrhea. She was seen in the emerge department the following day on the for left lower extremity erythema. She was given IV ceftriaxone and discharged home on clindamycin for cellulitis. She states that since she has been home, the size of the erythema has not increased but the intensity of the redness has in her leg has progressed to become more swollen and so she sought medical attention today. She states she has had no fevers or chills. Reports she had cellulitis in the past after an insect bite which was treated with oral antibiotics. She reports no recent trauma to the leg, insect bite, open skin lesions or scabs. She has not worked out in her yard or gone into the moise. She denies any spider bites. She reports she does have a history of diabetes which is controlled with just diet. Her last A1c was 6.1%. She reports no prior history of DVT or family history of thrombosis. She denies any recent surgeries, long flights, prolonged immobilization. Her only medication is Lyr ica. She does not take any oral contraceptives. She also noticed a cold sore that began 2 days ago over the right side of her mouth. This has extended to multiple lesions above her lips. She reports a prior history of herpes and she has been taking oral acyclovir in the past. She reports her last breakout was about 1 year ago. In the emergency department, she is on be afebrile with temperature of 37 C. She was tachycardic with a heart rate of 99. Blood pressure is 144/96. She was not tachypneic and saturating well on room air. White count had decreased to 13.9. Potassium was low at 3.2. Given her worsening pain and edema despite 48 hours of oral antibiotic therapy, medicine was consulted for admission. She did receive vancomycin IV in the emergency department. 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 He had diabetes and amputation of his left leg due to complications from his diabetes including ulcers. Her mother is alive and healthy. Living arrangement: At home Living Situation: With spouse/s.o. Social History Notes: She lives at home with her boyfriend and his 2 children. 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 She denies any alcohol, smoking, IV drug use. - Substance History Use: Uses substance without health or social issues: NONE - POLST Patient has POLST: No Meds/Allgy - Home Medications Home Medications: Ambulatory Orders Medication Instructions Recorded Confirmed Gabapentin 600 mg PO QPM 12/14/18 01/18/19 traMADol [Ultram] 50 mg PO Q4-6H 12/27/18 01/18/19 Clindamycin HCl [Clindamycin 300MG 300 mg PO Q6H #40 capsule 05/19/19 CAP] - Allergies Allergies/Adverse Reactions: Allergies Allergy/AdvReac Type Severity Reaction Status Date / Time metronidazole [From Flagyl] Allergy projectile Verified 05/19/19 09:33 vomiting Review of Systems - Constitutional Constitutional: denies: Fatigue, Fever, Weakness, Poor appetite - Eyes Eyes: denies: Blurred vision - Cardiovascular Cariovascular: denies: Chest pain, Exertional dyspnea - Respiratory Respiratory: denies: SOB at rest, SOB with exertion - Gastrointestinal Gastrointestinal: denies: Abdominal pain, Diarrhea, Nausea, Vomiting - Genitourinary Genitourinary: denies: Dysuria, Frequency, Urgency, Hematuria - Musculoskeletal Musculoskeletal: denies: Muscle pain, Limited range of motion - Integumentary Integumentary: reports: Lesions, Pigment changes. denies: Rash - Neurological Neurological: reports: Headache, Numbness. denies: General weakness, Focal weakness - Endocrine Endocrine: denies: Polyuria - Hematologic/Lymphatic Hematologic/Lymphatic: denies: Blood clots, Bleeding tendencies - All Other Systems All Other Systems: reports: Reviewed and negative Prior Level of Functionality: She is independent with her ADLs. Exam - Vital Signs Reviewed Vital Signs: Yes Vital Signs: Vital Signs x48h Temp Pulse Resp BP Pulse Ox 05/21/19 17:55 37 C 99 16 144/96 H 97 - Physical Exam General Appearance: positive: No acute distress, Alert Eyes Bilateral: positive: Normal inspection, Conjunctivae nml ENT: positive: Pharynx nml, Other (She has perioral vesicular lesions. There are no oral lesions and no pharyngeal erythema). negative: Pharyngeal erythema Neck: positive: Nml inspection Respiratory: positive: No respiratory distress. negative: Wheezes Cardiovascular: positive: No murmur. negative: Regular rate & rhythm, Tachycardia, Bradycardia, Systolic murmur, Diastolic murmur Abdomen: positive: Non-tender, Nml bowel sounds, No distention. negative: Tenderness, Guarding, Rebound Skin: positive: Warm, Dry, Other (There is erythema of the left lower extremity from the ankle up to the knee. Most of the erythema is anterior although there is posterior erythema up to the mid calf from the ankle. It is warm to touch and tender. There is +2 pitting edema. The erythema has not extended past the borders that were outlined 2 days ago.) Extremities: positive: Full ROM, Pedal edema (+2 pitting edema in the left lower extremity), Calf tenderness, Other (She has less than 2-second capillary refill in the left lower extremity. +2 dorsalis pedis pulses.). negative: Nml appearance Neurologic/Psychiatric: positive: Oriented x3, Motor nml, Sensation nml. negative: Disoriented to person, Disoriented to place, Disoriented to time Sepsis Event Note (H) - Evaluation Current Stage of Sepsis: Ruled out Conclusion/Plan - Problem List (1) Left leg cellulitis Conclusion/Plan: She appears to have left lower extremity cellulitis that failed outpatient therapy with clindamycin. She does not appear to be septic at the moment. Blood cultures have been drawn again and the ones drawn from 3 days ago are negative. She is a diabetic but this is well controlled. Given she failed oral clindamycin which covers MRSA, we will place her on vancomycin IV while she is hospitalized despite this being a nonpurulent cellulitis. Will control her pain Dilaudid IV as needed. Will obtain a Doppler of the left lower extremity to evaluate for DVT. We will give her a higher one-time dose of Dilaudid prior to the ultrasound given her significant pain. We will check a CRP. If she does not improve over next 24 hours despite IV antibiotics, will obtain further imaging of the left lower extremity. (2) Herpes simplex type 1 infection Conclusion/Plan: She has perioral herpes. There is no oral/tongue involvement. She says he had a milligrams of oral acyclovir in the emergency department. We will give her 2 g of valacyclovir twice daily for 1 day. (3) Leukocytosis Conclusion/Plan: This is chronic in nature and her baseline white count appears to be approximately 18,000. She has had 2- bone marrow biopsies with hematology and oncology. BCR-ABL was negative. Today her white count is the lowest it has been in months at 13.9. We will continue to trend her CBC while she is hospitalized. She continues to follow-up with hematology on outpatient basis. Qualifiers: Leukocytosis type: unspecified Qualified Code(s): D72.829 - Elevated white blood cell count, unspecified (4) Hypokalemia Conclusion/Plan: Her potassium is low at 3.2 and this is been replaced orally. We will continue to monitor and replace as necessary. (5) History of type 2 diabetes mellitus Conclusion/Plan: His A1c was 6.1%. He has been controlled with diet. We will continue her on a carb controlled diet while she is hospitalized. (6) Peripheral neuropathy Conclusion/Plan: This is chronic for her and we will resume her home Lyrica. - Lab Results Lab results reviewed: Yes Fish Bones: 05/21/19 18:00 05/21/19 18:00 - Diagnostic Imaging Results Diagnostic Imaging Results: positive: Final report reviewed Core Measures - Anticipated LOS I expect patient to be DC'd or transferred within 96 hours.: Yes - Issues Hospital Issues and Management Plan: 28-year-old female with left lower extremity cellulitis that failed outpatient treatment. We will admit her for IV antibiotics. - DVT/VTE - Prophylaxis VTE/DVT Device ordered at admit?: No Not Ordered - Medical Reason: Contraindicated VTE/DVT Prophylaxis med ordered at admit?: Yes
[2019-05-21] MEDS ORDERED: POTASSIUM CHLORIDE 20 MEQ TABLET PO ONE (19:39)
[2019-05-21] MEDS ORDERED: ceFAZolin 2 GM in SODIUM CHLORIDE 0.9% 100ML 100 ML IV SCH (20:00)
[2019-05-21] MEDS ORDERED: ENOXAPARIN 40 MG/0.4 ML SYRINGE SUBQ SCH (21:00)
[2019-05-21] MEDS: PREGABALIN 100 MG CAPSULE PO SCH (21:04)
[2019-05-21 21:44] LABS: MUDS CUTOFF CONCENTRATIONS CUTOFF CONC BELOW:
[2019-05-21 21:47] LABS: BILIRUBIN,URINE NEGATIVE (NEGATIVE); GLUCOSE, URINE (UA) NEGATIVE (NEGATIVE); KETONES,URINE (UA) NEGATIVE (NEGATIVE); LEUKOCYTE ESTERASE, URINE NEGATIVE (NEGATIVE); NITRITE,URINE NEGATIVE (NEGATIVE); OCCULT BLOOD,URINE TRACE-INTA (NEGATIVE); PROTEIN,URINE NEGATIVE (NEGATIVE); UROBILINOGEN,URINE 0.2 (NORMAL) E.U./dL (NORMAL)
[2019-05-21] MEDS: HYDROmorphone 0.5 MG/0.5 ML SYRINGE IVP PRN (21:48)
[2019-05-21 21:49] LABS: CLARITY,URINE HAZY (CLEAR); HCG UR QUAL NEGATIVE
[2019-05-21 21:55] LABS: BACTERIA,URINE Few /HPF (None Seen); RBC,URINE 0-5 /HPF (0-5); SQUAMOUS EPITHELIAL CELL,UR MANY Squamous (<= Few)
[2019-05-21 21:56] LABS: AMPHETAMINE SCREEN,URINE NEGATIVE (NEGATIVE); BENZODIAZEPINES SCREEN, URINE NEGATIVE (NEGATIVE); COCAINE SCREEN URINE NEGATIVE (NEGATIVE); METHADONE SCREEN, URINE NEGATIVE (NEGATIVE); METHAMPHETAMINES SCREEN, URINE NEGATIVE (NEGATIVE); OPIATE SCREEN, URINE POSITIVE (NEGATIVE); OXYCODONE SCREEN, URINE POSITIVE (NEGATIVE); PROPOXYPHENE SCREEN, URINE NEGATIVE (NEGATIVE); TRICYCLIC ANTIDEPRESSANT,URINE NEGATIVE (NEGATIVE)
[2019-05-21] MEDS ORDERED: ACYCLOVIR INJ 500 MG in SODIUM CHLORIDE 0.9% 250 ML IV SCH (22:00)
[2019-05-21] MEDS ORDERED: HYDROmorphone 2 MG/ML VIAL IVP STA (22:38)
--- NOTE | 2019-05-21 23:00 | Ultrasound Report ---
Reason: Left lower extremity erythema. Pain. Swelling. Procedure Date: 05/21/2019 Accession Number: [id number] / [id number] Procedure: US - Duplex Ext Veins Left CPT Code: Final Report FULL RESULT: EXAM: LEFT LOWER EXTREMITY VENOUS ULTRASOUND EXAM DATE: 05/21/2019 10:33 PM. CLINICAL HISTORY: Left lower extremity erythema. Pain. Swelling. COMPARISON: None. TECHNIQUE: Real-time sonographic vascular imaging was performed by the sample display preparer through the lower extremity utilizing both color-flow and Doppler spectral analysis. Multiple contact representative static images were saved for review. FINDINGS: Common Femoral Vein (CFV): Normal. CFV-GSV Junction: Normal. Profunda Femoral Vein (PFV): Normal. Femoral Vein (FV) Prox: Normal. Femoral Vein (FV) Mid: Normal. Femoral Vein (FV) Dist: Normal. Popliteal Vein: Normal. Posterior Tibial Veins: Not visualized. Peroneal Veins: Not visualized. Other: Left inguinal lymph node measuring 1.1 cm in short axis. Calf swelling. IMPRESSION: 1. No evidence of deep venous thrombosis in left lower extremity from CFV to popliteal vein. Calf veins not well seen. 2. Left inguinal lymph nodes measuring up to 1.1 cm in short axis, possibly reactive. 3. Left lower leg swelling. RADIA
[2019-05-22] MEDS: SODIUM CHLORIDE FLUSH 0.9% 10 ML SYRINGE IVP SCH ×3 (01:11→16:19)
[2019-05-22] MEDS: HYDROmorphone 0.5 MG/0.5 ML SYRINGE IVP PRN ×2 (01:11→04:36)
[2019-05-22] MEDS ORDERED: WATER FOR INJECTION,STERILE 20 ML ONE (02:08)
[2019-05-22] MEDS: SODIUM CHLORIDE FLUSH 0.9% 10 ML SYRINGE IVP PRN ×3 (02:28→18:46)
[2019-05-22] MEDS ORDERED: VANCOMYCIN INJ 1.5 GM in SODIUM CHLORIDE 0.9% 500 ML IV SCH (02:30)
[2019-05-22] MEDS: PREGABALIN 100 MG CAPSULE PO SCH ×3 (05:56→22:09)
[2019-05-22] MEDS ORDERED: HYDROmorphone 1 MG/ML SYRINGE IVP PRN (06:47)
[2019-05-22] MEDS ORDERED: HYDROmorphone 1 MG/ML CARPUJECT IVP PRN (06:48)
[2019-05-22] MEDS: HYDROmorphone 2 MG/ML VIAL IVP PRN ×3 (08:15→22:09)
[2019-05-22 08:22] LABS: BASOPHILS # (AUTO) 0.1 10^3/uL (0.0-0.1); BASOPHILS % (AUTO) 0.7 %; EOSINOPHILS # (AUTO) 0.1 10^3/uL (0.0-0.7); EOSINOPHILS % (AUTO) 1.2 %; HGB - HEMOGLOBIN 10.4 g/dL (12.0-16.0); LYMPHOCYTES # (AUTO) 2.1 10^3/uL (1.5-3.5); LYMPHOCYTES % (AUTO) 18.7 %; MEAN CORPUSCULAR HEMOGLOBIN 24.6 pg (27.0-31.0); MEAN CORPUSCULAR HGB CONC 29.5 g/dL (32.0-36.0); MEAN CORPUSCULAR VOLUME 83.6 fL (81.0-99.0); MEAN PLATELET VOLUME 8.9 fL (7.9-10.8); MONOCYTES # (AUTO) 1.3 10^3/uL (0.0-1.0); MONOCYTES % (AUTO) 11.1 %; NEUTROPHILS # (AUTO) 7.7 10^3/uL (1.5-6.6); NEUTROPHILS % (AUTO) 67.4 %; PLT - PLATELET COUNT 322 10^3/uL (130-450); RED BLOOD COUNT 4.22 10^6/uL (4.20-5.40); RED CELL DISTRIBUTION WIDTH 14.2 % (12.0-15.0); WHITE BLOOD COUNT 11.5 x10^3/uL (4.8-10.8)
[2019-05-22 08:39] LABS: ALBUMIN 2.9 g/dL (3.2-5.5); ALBUMIN/GLOBULIN RATIO 0.8 (1.0-2.2); BILIRUBIN,TOTAL 0.5 mg/dL (0.2-1.0); CALCIUM 8.4 mg/dL (8.5-10.3); CREATININE 0.6 mg/dL (0.4-1.0); CRP - C-REACTIVE PROTEIN 15.3 mg/dL (0-1.0); MAGNESIUM 1.9 mg/dL (1.7-2.8); PHOSPHORUS 3.7 mg/dL (2.5-4.6); TOTAL PROTEIN 6.6 g/dL (6.7-8.2)
[2019-05-22] MEDS ORDERED: VANCOMYCIN PER PHARMACY 100 GM in SODIUM CHLORIDE 0.9% 250 ML IV SCH (09:00)
--- NOTE | 2019-05-22 09:18 | PROVIDER PROGRESS NOTE ---
Subjective - Prog Note Date Prog Note Date: 05/22/19 Prog Note Time: 09:18 - Subjective Pt reports feeling: Improved Subjective: Millicent admits to ongoing pain which is severe when she lowers it to the floor, and difficulty with eating since having oral herpes. She denies a headache, chest pain, nausea, vomiting, diarrhea, a new rash, or shortness of breath. She has been told of her plan of care with the requirement of at least one more night of stay. Current Medications - Current Medications Current Medications: Active Medications: Enoxaparin Sodium (Lovenox) 40 mg SUBQ DAILY [facility] Hydromorphone HCl (Dilaudid Inj Carp) 1 mg IVP Q3H PRN Vancomycin HCl 1.5 gm/ Sodium (Chloride) 500 mls @ 250 mls/hr IV Q8H [facility] Cefepime HCl 2 gm/ Sodium (Chloride) 100 mls @ 200 mls/hr IV BID [facility] Pregabalin (Lyrica) 100 mg PO TID [facility] Valacyclovir HCl (Valtrex) 2,000 mg PO BID [facility] HOME MEDs: Gabapentin 600 mg PO QPM 12/14/18 traMADol [Ultram] 50 mg PO Q4-6H 12/27/18 NOT VERIFIED BY PHARMACY AT THE TIME OF THIS PROGRESS NOTE Objective - Vital Signs/Intake & Output Reviewed Vital Signs: Yes Vital Signs: Vital Signs x48h Temp Pulse Pulse Resp BP Pulse Ox 05/22/19 08:00 37 C 87 18 130/79 100 05/22/19 05:50 37.1 C 87 16 96 Intake & Output: Intake & Output 05/19/19 05/20/19 05/21/19 05/22/19 23:59 23:59 23:59 23:59 Intake Total 500 1113.75 Output Total 500 150 Balance 0 963.75 - Objective General Appearance: positive: Alert, Moderate distress Eyes Bilateral: positive: PERRL, No lid inflammation ENT: positive: No signs of dehydration, Oral lesions (herpes lesions noted on tongue) Neck: positive: No JVD, Trachea midline Respiratory: positive: Chest non-tender, No respiratory distress, Breath sounds nml Cardiovascular: positive: Regular rate & rhythm, No murmur, No gallop Peripheral Pulses: 1+ Radial (R), 1+ Radial (L) Abdomen: positive: Non-tender, Nml bowel sounds Back: positive: Nml inspection Skin: positive: Color nml, No rash, Warm, Dry, Other (herpes lesions appear more crusty today, surrounding outer mouth) Extremities: positive: Pedal edema (pedal edema to LLE, non-pitting) Neurologic/Psychiatric: positive: Oriented x3, CN's nml (2-12), Motor nml, Sensation nml, Mood/affect nml Reflexes: Bicep (R): 4+, Bicep (L): 4+ - Lab Results Fish Bones: 05/22/19 08:15 05/22/19 08:15 Other Labs: Lab Results x24hrs 05/22/19 05/22/19 05/21/19 Range/Units 08:15 08:15 21:20 WBC 11.5 H (4.8-10.8) x10^3/uL RBC 4.22 (4.20-5.40) 10^6/uL Hgb 10.4 L (12.0-16.0) g/dL Hct 35.3 L (37.0-47.0) % MCV 83.6 (81.0-99.0) fL MCH 24.6 L (27.0-31.0) pg MCHC 29.5 L (32.0-36.0) g/dL RDW 14.2 (12.0-15.0) % Plt Count 322 (130-450) 10^3/uL MPV 8.9 (7.9-10.8) fL Neut # (Auto) 7.7 H (1.5-6.6) 10^3/uL Lymph # (Auto) 2.1 (1.5-3.5) 10^3/uL [place] # (Auto) 1.3 H (0.0-1.0) 10^3/uL Eos # (Auto) 0.1 (0.0-0.7) 10^3/uL Baso # (Auto) 0.1 (0.0-0.1) 10^3/uL Absolute Nucleated RBC 0.00 x10^3/uL Nucleated RBC % 0.0 /100WBC Sodium 140 (135-145) mmol/L Potassium 3.9 (3.5-5.0) mmol/L Chloride 103 (101-111) mmol/L Carbon Dioxide 28 (21-32) mmol/L Anion Gap 9.0 (6-13) BUN 13 (6-20) mg/dL Creatinine 0.6 (0.4-1.0) mg/dL Estimated GFR (MDRD) 119 (>89) Glucose 114 H (70-100) mg/dL Lactic Acid (0.5-2.2) mmol/L Calcium 8.4 L (8.5-10.3) mg/dL Phosphorus 3.7 (2.5-4.6) mg/dL Magnesium 1.9 (1.7-2.8) mg/dL Total Bilirubin 0.5 (0.2-1.0) mg/dL AST 57 H (10-42) IU/L ALT 46 (10-60) IU/L Alkaline Phosphatase 107 (42-121) IU/L C-Reactive Protein 15.3 H (0-1.0) mg/dL Total Protein 6.6 L (6.7-8.2) g/dL Albumin 2.9 L (3.2-5.5) g/dL Globulin 3.7 (2.1-4.2) g/dL Albumin/Globulin Ratio 0.8 L (1.0-2.2) Lipase (22-51) U/L Urine Color Urine Clarity (CLEAR) Urine pH (5.0-7.5) PH Ur Specific [place] (1.002-1.030) Urine Protein (NEGATIVE) mg/dL Urine Glucose (UA) (NEGATIVE) mg/dL Urine Ketones (NEGATIVE) mg/dL Urine Occult Blood (NEGATIVE) Urine Nitrite (NEGATIVE) Urine Bilirubin (NEGATIVE) Urine Urobilinogen (NORMAL) E.U./dL Ur Leukocyte Esterase (NEGATIVE) Urine RBC (0-5) /HPF Urine WBC (0-5) /HPF Ur Squamous Epith Cells (<= Few) Urine Bacteria (None Seen) /HPF Ur Microscopic Review Urine Culture Comments Urine HCG, Qual Urine Opiates Screen POSITIVE H (NEGATIVE) Ur Oxycodone Screen POSITIVE H (NEGATIVE) Urine Methadone Screen NEGATIVE (NEGATIVE) Ur Propoxyphene Screen NEGATIVE (NEGATIVE) Ur Barbiturates Screen NEGATIVE (NEGATIVE) Ur Tricyclics Screen NEGATIVE (NEGATIVE) Ur Phencyclidine Scrn NEGATIVE (NEGATIVE) Ur Amphetamine Screen NEGATIVE (NEGATIVE) U Methamphetamines Scrn NEGATIVE (NEGATIVE) U Benzodiazepines Scrn NEGATIVE (NEGATIVE) Urine Cocaine Screen NEGATIVE (NEGATIVE) U Cannabinoids Screen NEGATIVE (NEGATIVE) 05/21/19 05/21/19 05/21/19 Range/Units 20:20 18:00 18:00 WBC (4.8-10.8) x10^3/uL RBC (4.20-5.40) 10^6/uL Hgb (12.0-16.0) g/dL Hct (37.0-47.0) % MCV (81.0-99.0) fL MCH (27.0-31.0) pg MCHC (32.0-36.0) g/dL RDW (12.0-15.0) % Plt Count (130-450) 10^3/uL MPV (7.9-10.8) fL Neut # (Auto) (1.5-6.6) 10^3/uL Lymph # (Auto) (1.5-3.5) 10^3/uL [place] # (Auto) (0.0-1.0) 10^3/uL Eos # (Auto) (0.0-0.7) 10^3/uL Baso # (Auto) (0.0-0.1) 10^3/uL Absolute Nucleated RBC x10^3/uL Nucleated RBC % /100WBC Sodium 138 (135-145) mmol/L Potassium 3.2 L (3.5-5.0) mmol/L Chloride 99 L (101-111) mmol/L Carbon Dioxide 26 (21-32) mmol/L Anion Gap 13.0 (6-13) BUN 11 (6-20) mg/dL Creatinine 0.7 (0.4-1.0) mg/dL Estimated GFR (MDRD) 100 (>89) Glucose 117 H (70-100) mg/dL Lactic Acid 1.5 (0.5-2.2) mmol/L Calcium 8.9 (8.5-10.3) mg/dL Phosphorus (2.5-4.6) mg/dL Magnesium (1.7-2.8) mg/dL Total Bilirubin 0.4 (0.2-1.0) mg/dL AST 26 (10-42) IU/L ALT 22 (10-60) IU/L Alkaline Phosphatase 79 (42-121) IU/L C-Reactive Protein (0-1.0) mg/dL Total Protein 7.9 (6.7-8.2) g/dL Albumin 3.5 (3.2-5.5) g/dL Globulin 4.4 H (2.1-4.2) g/dL Albumin/Globulin Ratio 0.8 L (1.0-2.2) Lipase 17 L (22-51) U/L Urine Color DARK YELLOW Urine Clarity HAZY (CLEAR) Urine pH 6.0 (5.0-7.5) PH Ur Specific [place] >=1.030 H (1.002-1.030) Urine Protein NEGATIVE (NEGATIVE) mg/dL Urine Glucose (UA) NEGATIVE (NEGATIVE) mg/dL Urine Ketones NEGATIVE (NEGATIVE) mg/dL Urine Occult Blood TRACE-INTA (NEGATIVE) Urine Nitrite NEGATIVE (NEGATIVE) Urine Bilirubin NEGATIVE (NEGATIVE) Urine Urobilinogen 0.2 (NORMAL) (NORMAL) E.U./dL Ur Leukocyte Esterase NEGATIVE (NEGATIVE) Urine RBC 0-5 (0-5) /HPF Urine WBC 0-3 (0-5) /HPF Ur Squamous Epith Cells MANY Squamous H (<= Few) Urine Bacteria Few (None Seen) /HPF Ur Microscopic Review INDICATED Urine Culture Comments NOT INDICATED Urine HCG, Qual NEGATIVE Urine Opiates Screen (NEGATIVE) Ur Oxycodone Screen (NEGATIVE) Urine Methadone Screen (NEGATIVE) Ur Propoxyphene Screen (NEGATIVE) Ur Barbiturates Screen (NEGATIVE) Ur Tricyclics Screen (NEGATIVE) Ur Phencyclidine Scrn (NEGATIVE) Ur Amphetamine Screen (NEGATIVE) U Methamphetamines Scrn (NEGATIVE) U Benzodiazepines Scrn (NEGATIVE) Urine Cocaine Screen (NEGATIVE) U Cannabinoids Screen (NEGATIVE) 05/21/19 Range/Units 18:00 WBC 13.9 H (4.8-10.8) x10^3/uL RBC 4.68 (4.20-5.40) 10^6/uL Hgb 11.7 L (12.0-16.0) g/dL Hct 39.4 (37.0-47.0) % MCV 84.2 (81.0-99.0) fL MCH 25.0 L (27.0-31.0) pg MCHC 29.7 L (32.0-36.0) g/dL RDW 14.2 (12.0-15.0) % Plt Count 357 (130-450) 10^3/uL MPV 9.4 (7.9-10.8) fL Neut # (Auto) 8.8 H (1.5-6.6) 10^3/uL Lymph # (Auto) 3.1 (1.5-3.5) 10^3/uL [place] # (Auto) 1.7 H (0.0-1.0) 10^3/uL Eos # (Auto) 0.1 (0.0-0.7) 10^3/uL Baso # (Auto) 0.1 (0.0-0.1) 10^3/uL Absolute Nucleated RBC 0.00 x10^3/uL Nucleated RBC % 0.0 /100WBC Sodium (135-145) mmol/L Potassium (3.5-5.0) mmol/L Chloride (101-111) mmol/L Carbon Dioxide (21-32) mmol/L Anion Gap (6-13) BUN (6-20) mg/dL Creatinine (0.4-1.0) mg/dL Estimated GFR (MDRD) (>89) Glucose (70-100) mg/dL Lactic Acid (0.5-2.2) mmol/L Calcium (8.5-10.3) mg/dL Phosphorus (2.5-4.6) mg/dL Magnesium (1.7-2.8) mg/dL Total Bilirubin (0.2-1.0) mg/dL AST (10-42) IU/L ALT (10-60) IU/L Alkaline Phosphatase (42-121) IU/L C-Reactive Protein (0-1.0) mg/dL Total Protein (6.7-8.2) g/dL Albumin (3.2-5.5) g/dL Globulin (2.1-4.2) g/dL Albumin/Globulin Ratio (1.0-2.2) Lipase (22-51) U/L Urine Color Urine Clarity (CLEAR) Urine pH (5.0-7.5) PH Ur Specific [place] (1.002-1.030) Urine Protein (NEGATIVE) mg/dL Urine Glucose (UA) (NEGATIVE) mg/dL Urine Ketones (NEGATIVE) mg/dL Urine Occult Blood (NEGATIVE) Urine Nitrite (NEGATIVE) Urine Bilirubin (NEGATIVE) Urine Urobilinogen (NORMAL) E.U./dL Ur Leukocyte Esterase (NEGATIVE) Urine RBC (0-5) /HPF Urine WBC (0-5) /HPF Ur Squamous Epith Cells (<= Few) Urine Bacteria (None Seen) /HPF Ur Microscopic Review Urine Culture Comments Urine HCG, Qual Urine Opiates Screen (NEGATIVE) Ur Oxycodone Screen (NEGATIVE) Urine Methadone Screen (NEGATIVE) Ur Propoxyphene Screen (NEGATIVE) Ur Barbiturates Screen (NEGATIVE) Ur Tricyclics Screen (NEGATIVE) Ur Phencyclidine Scrn (NEGATIVE) Ur Amphetamine Screen (NEGATIVE) U Methamphetamines Scrn (NEGATIVE) U Benzodiazepines Scrn (NEGATIVE) Urine Cocaine Screen (NEGATIVE) U Cannabinoids Screen (NEGATIVE) ABX Reporting Has patient been on IV antibiotics over the past 48 hours?: Yes Sepsis Event Note (H) - Evaluation Current Stage of Sepsis: Ruled out Assessment/Plan - Problem List (1) Left leg cellulitis Impression: -Patient states she thinks she let this go for too long before getting medical care -Was in the ED over the weekend, failed outpatient therapy with clindamycin -Was noted to have rigors at home, now resolved -Afebrile overnight -Blood cultures show no growth today -Continues on vancomycin IV, now added IV Cefepime today for some spreading outside of the original lines -See chart for photos -No open areas to LLE, nonpurulent cellulitis -Treating pain with Dilaudid IV as needed -Doppler was negative for DVT -Continue routine labs, follow inflammatory markers, CRP, monitor for fevers Herpes simplex type 1 infection -Noted to have ruddy-oral herpes, also covers her tongue -Received oral acyclovir in the ED, with an additional 2 g of valacyclovir twice daily for 1 day -Monitor for improvement Leukocytosis -WBC was elevated at 13.9, now 11.5 -Chronic in nature and her baseline white count appears to be approximately 18,000 -Status post 2- bone marrow biopsies with hematology and oncology -BCR-ABL was negative -Continue routine labs, treat this acute illness -Follow outpatient as usual History of type 2 diabetes mellitus -Last A1c was 6.1%, on 03/21/2019, now diet controlled since losing 60 lbs -Early AM blood sugar was 114 on labs today, no blood sugar checks or SSI at this time -Continues on a carb controlled diet while she is hospitalized, await new A1C in the AM Peripheral neuropathy -Noted to take gabapentin in the past, now taking Lyrica, continues here
[2019-05-22] MEDS: valACYclovir 500 MG TABLET PO SCH ×2 (09:30→22:09)
[2019-05-22] MEDS: ENOXAPARIN 40 MG/0.4 ML SYRINGE SUBQ SCH (09:30)
[2019-05-22] MEDS: CEFEPIME 2 GM in SODIUM CHLORIDE 0.9% MINIBAG 100 ML IV SCH ×2 (10:16→22:14)
[2019-05-22] MEDS: VANCOMYCIN INJ 1.5 GM in SODIUM CHLORIDE 0.9% 500 ML IV SCH ×2 (11:05→18:59)
--- NOTE | 2019-05-22 15:34 | PHARMACY PROGRESS NOTE ---
- Best Possible Medication History Admit Date and Time: 05/21/19 1843 Processed by: Pharmacy Medication History completed: Yes Patient Interview: Completed Secondary Source(s): Physician records (PCP active mediation list also listed lisinopril-hydrochlorothiazide 10-12.5 mg po daily but per patient she is not on this medication at home), Insurance records As the person ultimately responsible for medication therapy, providers are able to order a medication from an existing home medication list in [facility] via the "Reconcile Routine" prior to Confirmation of that medication by customer support analyst. Such practice is discouraged except when the physician, in their clinical judgment, deems that a medical need exists for a medication without regard to previous use.
[2019-05-22] MEDS ORDERED: HYDROmorphone 1 MG/ML CARPUJECT IVP ONE (18:39)
[2019-05-22 18:42] LABS: VANCOMYCIN,TROUGH 13.1 ug/mL (10.0-20.0)
[2019-05-23] MEDS: HYDROmorphone 2 MG/ML VIAL IVP PRN ×6 (01:08→23:43)
[2019-05-23] MEDS: SODIUM CHLORIDE FLUSH 0.9% 10 ML SYRINGE IVP SCH ×4 (01:08→23:38)
[2019-05-23] MEDS: VANCOMYCIN INJ 1.5 GM in SODIUM CHLORIDE 0.9% 500 ML IV SCH ×3 (02:32→20:26)
[2019-05-23] MEDS ORDERED: PREGABALIN 100 MG CAPSULE PO SCH (02:46)
[2019-05-23 06:09] LABS: BASOPHILS # (AUTO) 0.1 10^3/uL (0.0-0.1); BASOPHILS % (AUTO) 0.5 %; EOSINOPHILS # (AUTO) 0.2 10^3/uL (0.0-0.7); EOSINOPHILS % (AUTO) 1.6 %; HGB - HEMOGLOBIN 9.9 g/dL (12.0-16.0); LYMPHOCYTES # (AUTO) 2.6 10^3/uL (1.5-3.5); LYMPHOCYTES % (AUTO) 20.4 %; MEAN CORPUSCULAR HEMOGLOBIN 24.6 pg (27.0-31.0); MEAN CORPUSCULAR VOLUME 82.1 fL (81.0-99.0); MEAN PLATELET VOLUME 9.4 fL (7.9-10.8); MONOCYTES # (AUTO) 1.3 10^3/uL (0.0-1.0); NEUTROPHILS # (AUTO) 8.5 10^3/uL (1.5-6.6); PLT - PLATELET COUNT 346 10^3/uL (130-450); RED BLOOD COUNT 4.02 10^6/uL (4.20-5.40); RED CELL DISTRIBUTION WIDTH 13.8 % (12.0-15.0); WHITE BLOOD COUNT 12.9 x10^3/uL (4.8-10.8)
[2019-05-23 06:26] LABS: CALCIUM 8.2 mg/dL (8.5-10.3); CREATININE 0.7 mg/dL (0.4-1.0); CRP - C-REACTIVE PROTEIN 10.2 mg/dL (0-1.0); MAGNESIUM 1.9 mg/dL (1.7-2.8)
[2019-05-23 06:42] LABS: HB2 TOTAL 10.2 g/dL; HEMOGLOBIN A1C 0.38 g/dL; HEMOGLOBIN A1C % 5.6 % (4.6-6.2)
[2019-05-23] MEDS ORDERED: POTASSIUM CHLORIDE 20 MEQ TABLET PO ONE (08:00)
[2019-05-23] MEDS: CEFEPIME 2 GM in SODIUM CHLORIDE 0.9% MINIBAG 100 ML IV SCH ×2 (08:32→22:36)
[2019-05-23] MEDS: ENOXAPARIN 40 MG/0.4 ML SYRINGE SUBQ SCH (08:32)
[2019-05-23] MEDS: PREGABALIN 100 MG CAPSULE PO SCH ×3 (08:38→23:38)
[2019-05-23] MEDS: polyethylene glycoL 3350 17 GM PACKET PO SCH (08:38)
--- NOTE | 2019-05-23 10:47 | PROVIDER PROGRESS NOTE ---
Subjective - Prog Note Date Prog Note Date: 05/23/19 - Subjective Pt reports feeling: Improved Subjective: pt still report she had pain on her left leg when she walks, her mouth lip pain/score is better, she ate her breakfast. clinically her erythema is reduced, reduced significantly erythema area away from the lisandro, swelling is reduced as well. pt denies chest pain, fever, chill, cough, shortness of breath. Current Medications - Current Medications Current Medications: Active Medications Hydrocodone Bitart/Acetaminophen ([place] 10 Mg/325 Mg) 1 tab PO Q6HR PRN PRN Reason: PAIN Enoxaparin Sodium (Lovenox) 40 mg SUBQ DAILY [facility] Last Admin: 05/23/19 08:32 Dose: 40 mg Hydromorphone HCl (Dilaudid (Vial)) 2 mg IVP Q3H PRN PRN Reason: PAIN Last Admin: 05/23/19 08:38 Dose: 2 mg Vancomycin HCl 1.5 gm/ Sodium (Chloride) 500 mls @ 250 mls/hr IV Q8H [facility] Last Infusion: 05/23/19 04:42 Dose: Infused Cefepime HCl 2 gm/ Sodium (Chloride) 100 mls @ 200 mls/hr IV BID [facility] Last Infusion: 05/23/19 10:11 Dose: Infused Polyethylene Glycol (Miralax) 17 gm PO DAILY [facility] Last Admin: 05/23/19 08:38 Dose: Not Given Pregabalin (Lyrica) 100 mg PO 0000,0800,1500 [facility] Last Admin: 05/23/19 08:38 Dose: 100 mg Sodium Chloride (Normal Saline Flush 0.9%) 10 ml IVP PRN PRN PRN Reason: NEEDED PER PROVIDER ORDERS Last Admin: 05/22/19 18:46 Dose: 10 ml Sodium Chloride (Normal Saline Flush 0.9%) 10 ml IVP 0100,0900,1700 [facility] Last Admin: 05/23/19 08:38 Dose: 10 ml Pregabalin 100 mg PO TID 05/22/19 Objective - Vital Signs/Intake & Output Reviewed Vital Signs: Yes Vital Signs: Vital Signs x48h Temp Pulse Resp BP 05/23/19 07:48 37.3 C 98 16 141/81 H Intake & Output: Intake & Output 05/20/19 05/21/19 05/22/19 05/23/19 23:59 23:59 23:59 23:59 Intake Total 500 3294.75 900 Output Total 783 287 9157 Balance 0 2344.75 -100 - Objective General Appearance: positive: No acute distress, Alert. negative: Lethargic Eyes Bilateral: positive: Normal inspection, PERRL, No lid inflammation ENT: positive: ENT inspection nml, Pharynx nml, No signs of dehydration. negative: Purulent nasal drainage, Pharyngeal erythema, Oral lesions Neck: positive: Nml inspection, Thyroid nml, Trachea midline. negative: Thyromegaly, Lymphadenopathy (R), Lymphadenopathy (L), Stiff neck, Tracheal deviation Respiratory: positive: Chest non-tender, No respiratory distress, Breath sounds nml. negative: Wheezes, Rales, Rhonchi Cardiovascular: positive: Regular rate & rhythm, No murmur, No gallop. negative: Irregularly irregular, Extrasystoles, Tachycardia, Bradycardia, JVD present, Systolic murmur, Diastolic murmur Peripheral Pulses: 2+ Radial (R), 2+ Radial (L), 2+ Dorsalis pedis (R), 2+ Dorsalis pedis (L) Abdomen: positive: Non-tender, No organomegaly, Nml bowel sounds, No distention. negative: Tenderness, Guarding, Rebound Back: positive: Nml inspection. negative: CVA tenderness (R), CVA tenderness (L) Skin: positive: Color nml, No rash, Warm, Dry. negative: Cyanosis, Diaphoresis, Pallor Extremities: positive: Full ROM, Other (left lower extremity with mild to moderate erythema and swelling.). negative: Calf tenderness, Gil's sign/cords Neurologic/Psychiatric: positive: Oriented x3, Sensation nml, Mood/affect nml. negative: Weakness, Sensory loss, Facial droop, Slurred/abnml speech, Depressed mood/affect - Lab Results Fish Bones: 05/23/19 05:32 05/23/19 05:32 Other Labs: Lab Results x24hrs 05/23/19 05/23/19 05/23/19 Range/Units 05:32 05:32 05:32 WBC 12.9 H (4.8-10.8) x10^3/uL RBC 4.02 L (4.20-5.40) 10^6/uL Hgb 9.9 L (12.0-16.0) g/dL Hct 33.0 L (37.0-47.0) % MCV 82.1 (81.0-99.0) fL MCH 24.6 L (27.0-31.0) pg MCHC 30.0 L (32.0-36.0) g/dL RDW 13.8 (12.0-15.0) % Plt Count 346 (130-450) 10^3/uL MPV 9.4 (7.9-10.8) fL Neut # (Auto) 8.5 H (1.5-6.6) 10^3/uL Lymph # (Auto) 2.6 (1.5-3.5) 10^3/uL [place] # (Auto) 1.3 H (0.0-1.0) 10^3/uL Eos # (Auto) 0.2 (0.0-0.7) 10^3/uL Baso # (Auto) 0.1 (0.0-0.1) 10^3/uL Absolute Nucleated RBC 0.00 x10^3/uL Nucleated RBC % 0.0 /100WBC Sodium 138 (135-145) mmol/L Potassium 3.4 L (3.5-5.0) mmol/L Chloride 103 (101-111) mmol/L Carbon Dioxide 26 (21-32) mmol/L Anion Gap 9.0 (6-13) BUN 9 (6-20) mg/dL Creatinine 0.7 (0.4-1.0) mg/dL Estimated GFR (MDRD) 100 (>89) Glucose 106 H (70-100) mg/dL Glycated Hemoglobin 5.6 (4.6-6.2) % Estim Average Glucose 114 H (70-100) Calcium 8.2 L (8.5-10.3) mg/dL Magnesium 1.9 (1.7-2.8) mg/dL C-Reactive Protein 10.2 H (0-1.0) mg/dL Last Dose Date Last Dose Time Vancomycin Trough (10.0-20.0) ug/mL 05/22/19 Range/Units 18:00 WBC (4.8-10.8) x10^3/uL RBC (4.20-5.40) 10^6/uL Hgb (12.0-16.0) g/dL Hct (37.0-47.0) % MCV (81.0-99.0) fL MCH (27.0-31.0) pg MCHC (32.0-36.0) g/dL RDW (12.0-15.0) % Plt Count (130-450) 10^3/uL MPV (7.9-10.8) fL Neut # (Auto) (1.5-6.6) 10^3/uL Lymph # (Auto) (1.5-3.5) 10^3/uL [place] # (Auto) (0.0-1.0) 10^3/uL Eos # (Auto) (0.0-0.7) 10^3/uL Baso # (Auto) (0.0-0.1) 10^3/uL Absolute Nucleated RBC x10^3/uL Nucleated RBC % /100WBC Sodium (135-145) mmol/L Potassium (3.5-5.0) mmol/L Chloride (101-111) mmol/L Carbon Dioxide (21-32) mmol/L Anion Gap (6-13) BUN (6-20) mg/dL Creatinine (0.4-1.0) mg/dL Estimated GFR (MDRD) (>89) Glucose (70-100) mg/dL Glycated Hemoglobin (4.6-6.2) % Estim Average Glucose (70-100) Calcium (8.5-10.3) mg/dL Magnesium (1.7-2.8) mg/dL C-Reactive Protein (0-1.0) mg/dL Last Dose Date UNKNOWN Last Dose Time UNKNOWN Vancomycin Trough 13.1 (10.0-20.0) ug/mL ABX Reporting Has patient been on IV antibiotics over the past 48 hours?: Yes Sepsis Event Note (H) - Evaluation Current Stage of Sepsis: Ruled out Assessment/Plan - Problem List (1) Left leg cellulitis Impression: 05/22 improved. erythema and swell both reduced. pt still report pain when she walks. CRP is reduced. WBC is reduced as her baseline. continue Cefpime and Vancomycin, encourage pt rise her left leg add [place] PRN for pain control continue lab and vital monitor (2) Herpes simplex type 1 infection Conclusion/Plan: 05/22 pt finished her 2 g of valacyclovir twice daily for 1 day, clinically she is better and tolerate her diet continue pain control (3) Leukocytosis 05/22 stable, today her WBC is 12.9, usually her WBC is higher than this, advise pt continue followup her hemotologist to monitor (4) Hypokalemia Conclusion/Plan: Her potassium is low at 3.4 and this is been replaced orally. (5) History of type 2 diabetes mellitus Conclusion/Plan: Her A1c was 6.1%. Glucose is controlled, and continue her on a carb controlled diet while she is hospitalized. (6) Peripheral neuropathy Conclusion/Plan: stable, continue Lyrica (7)obesity pt has BMI 51 now, encourage loss of weight.
[2019-05-23] MEDS: SODIUM CHLORIDE FLUSH 0.9% 10 ML SYRINGE IVP PRN (12:46)
[2019-05-23 18:22] LABS: VANCOMYCIN,TROUGH 14.8 ug/mL (10.0-20.0)
[2019-05-23] MEDS ORDERED: VANCOMYCIN 1 GM VIAL ONE (18:48)
[2019-05-23] MEDS: HYDROcod/ACETAM 10 MG/325 MG TABLET PO PRN (19:33)
[2019-05-24] MEDS: SODIUM CHLORIDE FLUSH 0.9% 10 ML SYRINGE IVP PRN (04:28)
[2019-05-24] MEDS: VANCOMYCIN INJ 1.5 GM in SODIUM CHLORIDE 0.9% 500 ML IV SCH ×2 (04:28→12:11)
[2019-05-24] MEDS: HYDROmorphone 2 MG/ML VIAL IVP PRN (04:38)
[2019-05-24 05:10] LABS: BASOPHILS % (AUTO) 0.5 %; EOSINOPHILS % (AUTO) 1.6 %; HGB - HEMOGLOBIN 10.2 g/dL (12.0-16.0); LYMPHOCYTES % (AUTO) 16.8 %; MEAN CORPUSCULAR HEMOGLOBIN 25.4 pg (27.0-31.0); MEAN CORPUSCULAR HGB CONC 30.3 g/dL (32.0-36.0); MONOCYTES % (AUTO) 8.6 %; NEUTROPHILS % (AUTO) 68.2 %; PLT - PLATELET COUNT 378 10^3/uL (130-450); RED BLOOD COUNT 4.01 10^6/uL (4.20-5.40); RED CELL DISTRIBUTION WIDTH 13.6 % (12.0-15.0); WHITE BLOOD COUNT 16.8 x10^3/uL (4.8-10.8)
[2019-05-24 05:21] LABS: ABNORMAL LYMPHS % (MANUAL) 0 %
[2019-05-24 05:24] LABS: CALCIUM 8.4 mg/dL (8.5-10.3); CREATININE 0.7 mg/dL (0.4-1.0); CRP - C-REACTIVE PROTEIN 9.2 mg/dL (0-1.0)
[2019-05-24 06:03] LABS: BAND NEUTROPHILS % (MANUAL) 3 %; DIFFERENTIAL COMMENT MANUAL DIFFERENTIAL; LYMPHOCYTES # (MANUAL) 2.4 10^3/uL (1.5-3.5); LYMPHOCYTES % (MANUAL) 14 %; MONOCYTES # (MANUAL) 0.5 10^3/uL (0.0-1.0); PLATELET ESTIMATE, MANUAL NORMAL (130-450,000) (NORMAL); RBC MORPHOLOGY (MULTIPLE) NORMAL APPEARANCE (NORMAL)
[2019-05-24] MEDS: HYDROcod/ACETAM 10 MG/325 MG TABLET PO PRN ×2 (08:10→15:06)
[2019-05-24] MEDS: PREGABALIN 100 MG CAPSULE PO SCH ×2 (08:38→14:45)
[2019-05-24] MEDS: CEFEPIME 2 GM in SODIUM CHLORIDE 0.9% MINIBAG 100 ML IV SCH (08:39)
[2019-05-24] MEDS: SODIUM CHLORIDE FLUSH 0.9% 10 ML SYRINGE IVP SCH (08:42)
[2019-05-24] MEDS: ENOXAPARIN 40 MG/0.4 ML SYRINGE SUBQ SCH (08:42)
[2019-05-24] MEDS: polyethylene glycoL 3350 17 GM PACKET PO SCH (08:49)
[2019-05-24] MEDS ORDERED: IOVERSOL 320 100 ML VIAL IVP ONE ×2 (09:54→14:01)
--- NOTE | 2019-05-24 14:35 | CT Report ---
Reason: severe pain and cullulitis Procedure Date: 05/24/2019 Accession Number: [id number] / [id number] Procedure: CT - LOWER EXTREMITY W - LT CPT Code: Final Report FULL RESULT: EXAM: LEFT LOWER EXTREMITY CT WITH CONTRAST EXAM DATE: 05/24/2019 02:00 PM. CLINICAL HISTORY: Severe pain and cellulitis. COMPARISON: None. TECHNIQUE: Thin-section axial images were acquired of the lower extremity from the distal femur to the ankle after administration of intravenous contrast. IV contrast: 100 mL OPTIRAY 320. Post-processing: Coronal and sagittal reformats. Other: None. In accordance with CT protocol optimization, one or more of the following dose reduction techniques were utilized for this exam: automated exposure control, adjustment of mA and/or KV based on patient size, or use of iterative reconstructive technique. FINDINGS: Bones: No fracture or bone lesion. No CT signs of osteomyelitis. Joints: The visualized joint spaces are normal. Musculature: Normal. No fatty atrophy. No intermuscular fascial fluid or edema. Other: There is mild to moderate generalized subcutaneous edema scattered throughout the visible leg, slightly more evident anteriorly and laterally than posteriorly and medially, with the degree of edema most pronounced distally at the level of the ankle and proximally along the lateral margin of the patella. No peripherally enhancing subcutaneous collection to suggest abscess. The subcutaneous edema may reflect cellulitis though other noninfectious etiologies for lower extremity edema are possible. No soft tissue gas. IMPRESSION: 1. Moderate subcutaneous edema scattered throughout the left lower leg. No abscess. Findings may reflect cellulitis though other noninfectious etiologies for lower extremity edema are also possible. 2. No soft tissue gas. RADIA
[2019-05-24 16:46] VITALS: BP 152/87
--- NOTE | 2019-05-24 17:01 | Discharge Plan ---
Discharge Plan Problem Reviewed?: Yes Disposition: Home, Self Care Condition: Stable Prescriptions: HYDROcodone/ACET 10/325 [[place] 10 mg/325 mg] 1 tab PO Q4HR PRN #25 tablet PRN Reason: Pain Cephalexin [Keflex] 250 mg PO QID #28 capsule Saccharomyces Boulardii [Florastor] 250 mg PO DAILY #7 capsule Diet: Regular Activity Restrictions: Activity as Tolerated Shower Restrictions: No (fall precaution) Instruction Topics: Cellulitis Ch, Cephalexin tablets or capsules, Acetaminophen Hydrocodone tablets or capsules Health Concerns: cellulitis Plan of Treatment: your left lower extremity was found to have cellulitis, antibiotics Keflex is prescribed to finish the treatment course, pain meds [place] is also prescribed for you to control the pain. Care Goals: stabilization and improvement of your medical condition. Assessment: discussed with you about the care plan, you understood. Additional Instructions or Follow Up instructions: you may followup your PCP in one to two weeks. Should your symptoms return or worsen, you may present ER or call 911 for help. No Smoking: If you smoke, Please STOP! Call for help. Follow-up with: Elizabeth Weir PA [Primary Care Provider] -
--- NOTE | 2019-05-24 17:08 | DISCHARGE SUMMARY ---
Discharge Summary Admit Date: 05/21/19 Discharge Date: 05/24/19 Discharging Provider: Lucas Cavazos Primary Care Provider: Hardeep Hooks Condition at Discharge: Stable Discharge Disposition: 01 Home, Self Care Discharge Facility Name: home - DIAGNOSES Admission Diagnoses: (1) Left leg cellulitis (2) Herpes simplex type 1 infection (3) Leukocytosis (4) Hypokalemia (5) History of type 2 diabetes mellitus (6) Peripheral neuropathy Discharge Diagnoses with Status of Each Condition: (1) Left leg cellulitis clinically great improved for her infection. erythema was reduced significantly, and swelling is reduced close to pt's baseline as pt report. CRP is continuing to run down. pt has no fever, chill. blood culture was negative for bacteremia. pt has hx of elevated WBC, pt report her WBC is usually at 18,000. Now her WBC is 16.8. CT reveals no abscess or gas. pt is prescribed antibiotics and pain control meds. (2) Herpes simplex type 1 infection resolved (3) Leukocytosis chronic and stable (4) Hypokalemia resolved (5) History of type 2 diabetes mellitus stable (6) Peripheral neuropathy stable (7)obesity stable, advise pt loss of weight - HPI History of Present Illness: refer from Dr. Hood' HPI on 05/21/2019 This is a 28-year-old female with a past medical history significant for chronic leukocytosis, type 2 diabetes mellitus, and obesity who presents today complaining of worsening left lower extremity pain and swelling. She was seen in the emergency department on May 17 for abdominal pain associated with nausea, vomiting, and diarrhea. At that time she found afebrile with a temperature of 39.4 C. Her white count was also elevated at 30.5 which is above her baseline of 18. There were no obvious source of infection found at that time as her influenza was negative as well as a urinalysis and chest x-ray. She received IV fluids and her fever broke and therefore she was discharged home at her request to follow-up with her podiatrist. She states that since then, she no longer felt febrile and has no further episodes of nausea or vomiting and diarrhea. She was seen in the emerge department the following day on the for left lower extremity erythema. She was given IV ceftriaxone and discharged home on clindamycin for cellulitis. She states that since she has been home, the size of the erythema has not increased but the intensity of the redness has in her leg has progressed to become more swollen and so she sought medical attention today. She states she has had no fevers or chills. Reports she had cellulitis in the past after an insect bite which was treated with oral antibiotics. She reports no recent trauma to the leg, insect bite, open skin lesions or scabs. She has not worked out in her yard or gone into the moise. She denies any spider bites. She reports she does have a history of diabetes which is controlled with just diet. Her last A1c was 6.1%. She reports no prior history of DVT or family history of thrombosis. She denies any recent surgeries, long flights, prolonged immobilization. Her only medication is Lyrica. She does not take any oral contraceptives. She also noticed a cold sore that began 2 days ago over the right side of her mouth. This has extended to multiple lesions above her lips. She reports a prior history of herpes and she has been taking oral acyclovir in the past. She reports her last breakout was about 1 year ago. In the emergency department, she is on be afebrile with temperature of 37 C. She was tachycardic with a heart rate of 99. Blood pressure is 144/96. She was not tachypneic and saturating well on room air. White count had decreased to 13.9. Potassium was low at 3.2. Given her worsening pain and edema despite 48 hours of oral antibiotic therapy, medicine was consulted for admission. She did receive vancomycin IV in the emergency department. - HOSPITAL COURSE Hospital Course: pt was admitted for left leg cellulitis, pt was also found to have acute flare HSV in mouth lips. pt was treated with antibiotics for cellulitis and valacyclvir for HSV. Her mouth lips sore was resolved after treatment. Her left leg cellulitis erythema ans swelling was significantly reduced. CT of left leg reveals no gas or abscess. leg pain is reduced as well. pt want and be happy to be d/c to home. antibiotics was prescribed for pt to finish the treatment course. The detail hospital course is the below. (1) Left leg cellulitis great improved. erythema was reduced significantly, and swelling is reduced close to pt's baseline as pt report. CRP is continuing to run down. pt has no fever, chill. blood culture was negative for bacteremia. pt has hx of elevated WBC, pt report her WBC is usually at 18,000. Now her WBC is 16.8. CT reveals no abscess or gas. pt is prescribed antibiotics and pain control meds. (2) Herpes simplex type 1 infection resolved (3) Leukocytosis chronic and stable (4) Hypokalemia resolved (5) History of type 2 diabetes mellitus stable (6) Peripheral neuropathy stable (7)obesity stable, advise pt loss of weight - ALLERGIES Allergies/Adverse Reactions: Allergies Allergy/AdvReac Type Severity Reaction Status Date / Time metronidazole [From Flagyl] Allergy projectile Verified 05/19/19 09:33 vomiting - MEDICATIONS Home Medications: Ambulatory Orders Medication Instructions Recorded Confirmed Pregabalin 100 mg PO TID 05/22/19 05/22/19 Cephalexin [Keflex] 250 mg PO QID #28 capsule 05/24/19 HYDROcodone/ACET 10/325 [[place] 10 1 tab PO Q4HR PRN #25 tablet 05/24/19 mg/325 mg] Saccharomyces Boulardii [Florastor] 250 mg PO DAILY #7 capsule 05/24/19 - PHYSICAL EXAM AT DISCHARGE General Appearance: positive: No acute distress, Alert. negative: Lethargic Eyes Bilateral: positive: Normal inspection, PERRL, No lid inflammation ENT: positive: ENT inspection nml, Pharynx nml, No signs of dehydration. negative: Purulent nasal drainage Neck: positive: Nml inspection, Thyroid nml, No JVD, Trachea midline. negative: Thyromegaly, Lymphadenopathy (R), Lymphadenopathy (L), Stiff neck, Tracheal deviation Respiratory: positive: Chest non-tender, No respiratory distress, Breath sounds nml. negative: Wheezes, Rales, Rhonchi Cardiovascular: positive: Regular rate & rhythm, No murmur, No gallop. negative: Irregularly irregular, Extrasystoles, Tachycardia, Bradycardia, JVD present, Systolic murmur, Diastolic murmur Peripheral Pulses: positive: 2+ Abdomen: positive: Non-tender, No organomegaly, Nml bowel sounds. negative: Tenderness, Guarding, Rebound Back: positive: Nml inspection. negative: CVA tenderness (R), CVA tenderness (L) Skin: positive: Warm, Dry. negative: Cyanosis, Diaphoresis, Pallor, Decubitus, Laceration (cm) Extremities: positive: Non-tender, Full ROM. negative: Calf tenderness, Gil's sign/cords Neurologic/Psychiatric: positive: Oriented x3, Motor nml, Sensation nml, Mood/affect nml. negative: Weakness, Sensory loss, Facial droop, Slurred/abnml speech, Depressed mood/affect - LABS Result Diagrams: 05/24/19 04:45 05/24/19 04:45 - SEPSIS Current Stage of Sepsis: Ruled out - FOLLOW UP Follow Up: ur left lower extremity was found to have cellulitis, antibiotics Keflex is prescribed to finish the treatment course, pain meds [place] is also prescribed for you to control the pain. you may followup your PCP in one to two weeks. Should your symptoms return or worsen, you may present ER or call 911 for help. - TIME SPENT Time Spent in Discharge (Minutes): 30
== END 2019-05-24 18:00 | disposition home or self-care (01) | DRG 603 ==
LOC: ED 17:54 → MS2 18:43
PROVIDERS: ADMIT Nurse Practitioner; ATTEND Nurse Practitioner Gerontology
DX: L03.116 Cellulitis of left lower limb (principal); Z68.43 Body mass index [BMI] 50.0-59.9, adult; B00.1 Herpesviral vesicular dermatitis; E87.6 Hypokalemia; E11.42 Type 2 diabetes mellitus with diabetic polyneuropathy; E66.9 Obesity, unspecified; D72.829 Elevated white blood cell count, unspecified
CPT/HCPCS: 36415; 73701; 80048; 80053; 80202; 80306; 81001; 81025; 83036; 83605; 83690; 83735; 84100; 85025; 86140; 87040; 93971; 99285; A9270; J1170; J1650; J3370; Q9967; 81003; 87086

== ENCOUNTER 2019-06-29 14:11 | Outpatient (CLI) | payer MEDICAID ==
[2019-06-29 18:16] LABS: BASOPHILS # (AUTO) 0.1 10^3/uL (0.0-0.1); BASOPHILS % (AUTO) 0.8 %; EOSINOPHILS # (AUTO) 0.3 10^3/uL (0.0-0.7); EOSINOPHILS % (AUTO) 1.6 %; HGB - HEMOGLOBIN 11.7 g/dL (12.0-16.0); LYMPHOCYTES # (AUTO) 4.6 10^3/uL (1.5-3.5); MEAN CORPUSCULAR HEMOGLOBIN 25.4 pg (27.0-31.0); MEAN PLATELET VOLUME 9.8 fL (7.9-10.8); MONOCYTES # (AUTO) 1.2 10^3/uL (0.0-1.0); MONOCYTES % (AUTO) 6.8 %; NEUTROPHILS # (AUTO) 10.7 10^3/uL (1.5-6.6); NEUTROPHILS % (AUTO) 62.6 %; PLT - PLATELET COUNT 368 10^3/uL (130-450); RED BLOOD COUNT 4.61 10^6/uL (4.20-5.40); RED CELL DISTRIBUTION WIDTH 13.8 % (12.0-15.0); WHITE BLOOD COUNT 17.1 x10^3/uL (4.8-10.8)
[2019-06-29 18:40] LABS: ALBUMIN 3.7 g/dL (3.2-5.5); BILIRUBIN,TOTAL 0.5 mg/dL (0.2-1.0); CALCIUM 8.8 mg/dL (8.5-10.3); CREATININE 0.5 mg/dL (0.4-1.0); CRP - C-REACTIVE PROTEIN 1.4 mg/dL (0-1.0); TOTAL PROTEIN 7.5 g/dL (6.7-8.2)
[2019-07-01 11:45] LABS: ANA SCREEN NEGATIVE (NEGATIVE)
== END 2019-06-29 23:59 | disposition home or self-care (01) ==
LOC: LAB.WCP 14:11
PROVIDERS: ATTEND Physician Assistant
DX: D72.829 Elevated white blood cell count, unspecified (principal); R70.0 Elevated erythrocyte sedimentation rate
CPT/HCPCS: 36415; 80053; 82728; 83615; 85025; 85651; 86038; 86140

== ENCOUNTER 2019-10-20 08:47 | Outpatient (CLI) | payer MEDICAID ==
--- NOTE | 2019-10-23 10:52 | Nuclear Medicine Report ---
PROCEDURE: Bone Whole Body INDICATIONS: LEUKOCYTOSIS RADIOPHARMACEUTICAL: 26.7 mCi Tc-99m MDP IV. TECHNIQUE: Delayed whole-body scintigrams were obtained approximately 3-4 hours after intravenous injection of r adiotracer. Anterior and posterior views were acquired from vertex to feet. Additional lateral views of the skull. COMPARISON: None available. FINDINGS: There is normal distribution of activity in skull, sternum, clavicles, cervical, thoracic and lumbar spine, pelvis, and visualized shafts of the long bones. Mild symmetrically increased activ ity in the mid feet bilaterally, most likely degenerative in nature. IMPRESSION: No scintigraphic findings to explain leukocytosis. Reviewed by: Yola Joya MD on 10/23/2019 10:51 AM PDT Approved by: Yola Joya MD on 10/23/2019 10:51 AM PDT Station ID: [id number]
== END 2019-10-20 08:48 | disposition home or self-care (01) ==
LOC: DI 08:47
PROVIDERS: ATTEND Physician Assistant
DX: D72.829 Elevated white blood cell count, unspecified (principal)
CPT/HCPCS: 78306

== ENCOUNTER 2019-11-13 15:44 | Outpatient (CLI) | payer MEDICAID ==
--- NOTE | 2019-11-14 09:21 | Ultrasound Report ---
PROCEDURE: Pelvic w/Transvaginal INDICATIONS: MENORRHAGIA TECHNIQUE: Real-time scanning was performed of the pelvic organs, with image documentation. Additional endovagi nal scanning was necessary due to incomplete visualization of the adnexal and endometrial structures by transabdominal scanning. COMPARISON: 12/20/2018 FINDINGS: Transabdominal scanning: Limited scanning through the kidneys shows no hydronephrosis. There is a l arge, 1.0 cm echogenic shadowing focus in the lower pole of the left kidney. No pathologic free abdom inal or pelvic fluid. Endovaginal scanning: Uterus: Uterus is anteverted and normal in size at 9.0 x 4.2 x 5.4 cm. There is a dominant simple n abothian cyst in the cervix, and multiple other smaller nabothian cysts. A small posterior myometrial fibroid is present measuring by 1.2 cm. Peristalsis of the endometrium is noted. No discrete fluid. The endometrium measures 11 mm in combine d thickness. Ovaries: The right ovary measures 2.8 x 2.4 x 3.4 cm for a volume of 11.9 cc. The left ovary measure s 3.4 x 2.5 x 2.3 cm for a volume of 10.1 cc. Numerous subcentimeter follicles are present on the rig ht ovary, greater than 12. Multiple subcentimeter follicles also present on the left ovary. There is a dominant left paraovarian cyst measuring 2.2 cm. No free fluid in the pelvis or suspicious adnexal mass. IMPRESSION: 1. Dynamic endometrium but no other endometrial abnormalities post removal of endometrial polyp. 2. Numerous subcentimeter ovarian follicles bilaterally. This can be physiologic, but also seen in th e setting of polycystic ovary syndrome. Correlate with lab values if clinically indicated. 3. Nonobstructing left renal stone. 4. Small myometrial uterine fibroid. Reviewed by: Cate Arredondo MD on 11/14/2019 9:20 AM PDT Approved by: Cate Arredondo MD on 11/14/2019 9:20 AM PDT Station ID: [id number]
== END 2019-11-13 15:45 | disposition home or self-care (01) ==
LOC: DI 15:44
PROVIDERS: ATTEND Physician Assistant
DX: N83.02 Follicular cyst of left ovary (principal); N83.01 Follicular cyst of right ovary; N20.0 Calculus of kidney; D25.9 Leiomyoma of uterus, unspecified
CPT/HCPCS: 76830; 76856

== ENCOUNTER 2019-12-08 10:44 | Outpatient (CLI) | payer MEDICAID ==
[2019-12-08 18:44] LABS: BASOPHILS # (AUTO) 0.1 10^3/uL (0.0-0.1); BASOPHILS % (AUTO) 0.8 %; EOSINOPHILS # (AUTO) 0.3 10^3/uL (0.0-0.7); EOSINOPHILS % (AUTO) 1.6 %; HGB - HEMOGLOBIN 11.6 g/dL (12.0-16.0); LYMPHOCYTES # (AUTO) 4.1 10^3/uL (1.5-3.5); MEAN CORPUSCULAR HEMOGLOBIN 25.9 pg (27.0-31.0); MEAN CORPUSCULAR HGB CONC 30.8 g/dL (32.0-36.0); MEAN CORPUSCULAR VOLUME 84.2 fL (81.0-99.0); MEAN PLATELET VOLUME 9.5 fL (7.9-10.8); NEUTROPHILS # (AUTO) 11.5 10^3/uL (1.5-6.6); NEUTROPHILS % (AUTO) 66.7 %; PLT - PLATELET COUNT 385 10^3/uL (130-450); RED BLOOD COUNT 4.48 10^6/uL (4.20-5.40); RED CELL DISTRIBUTION WIDTH 14.3 % (12.0-15.0); WHITE BLOOD COUNT 17.2 x10^3/uL (4.8-10.8)
[2019-12-08 18:45] LABS: ALBUMIN 3.8 g/dL (3.2-5.5); ALBUMIN/GLOBULIN RATIO 0.9 (1.0-2.2); ALKALINE PHOSPHATASE 73 IU/L (42-121); ALT ALANINE AMINOTRANSFERASE 12 IU/L (10-60); AST ASPARTATE AMINOTRANSFERASE 13 IU/L (10-42); BILIRUBIN,TOTAL 0.2 mg/dL (0.2-1.0); BUN - BLOOD UREA NITROGEN 11 mg/dL (6-20); CALCIUM 9.1 mg/dL (8.5-10.3); CARBON DIOXIDE - CO2 26 mmol/L (21-32); CHLORIDE 99 mmol/L (101-111); CHOL/HDL RATIO 4.6 (<4.4); CHOLESTEROL 182 mg/dL; CREATININE 0.6 mg/dL (0.4-1.0); GLUCOSE 103 mg/dL (70-100); HDL CHOLESTEROL 40 mg/dL; LDL CHOLESTEROL,CALCULATED 67 mg/dL; LDL/HDL RATIO 1.7 (<4.4); SODIUM 135 mmol/L (135-145); TOTAL PROTEIN 7.9 g/dL (6.7-8.2); VLDL CHOLESTEROL 75 mg/dL
[2019-12-08 19:07] LABS: FOLATE 3.17 ng/mL (5.90 - >24.8)
[2019-12-08 19:19] LABS: HEMOGLOBIN A1c% 6.3 % (4.27-6.07)
== END 2019-12-08 23:59 | disposition home or self-care (01) ==
LOC: LAB.WCP 10:44
PROVIDERS: ATTEND Physician Assistant
DX: E11.9 Type 2 diabetes mellitus without complications (principal); E78.5 Hyperlipidemia, unspecified; G62.9 Polyneuropathy, unspecified
CPT/HCPCS: 36415; 80053; 80061; 82607; 82746; 83036; 83721; 85025

== ENCOUNTER 2020-02-02 20:41 | Emergency (ER) | payer MEDICAID ==
[2020-02-02 21:11] LABS: BASOPHILS # (AUTO) 0.1 10^3/uL (0.0-0.1); BASOPHILS % (AUTO) 0.6 %; EOSINOPHILS # (AUTO) 0.2 10^3/uL (0.0-0.7); EOSINOPHILS % (AUTO) 1.4 %; HGB - HEMOGLOBIN 11.5 g/dL (12.0-16.0); LYMPHOCYTES # (AUTO) 4.6 10^3/uL (1.5-3.5); LYMPHOCYTES % (AUTO) 28.8 %; MEAN CORPUSCULAR HGB CONC 31.1 g/dL (32.0-36.0); MEAN CORPUSCULAR VOLUME 80.4 fL (81.0-99.0); MEAN PLATELET VOLUME 8.8 fL (7.9-10.8); MONOCYTES # (AUTO) 1.3 10^3/uL (0.0-1.0); MONOCYTES % (AUTO) 7.9 %; NEUTROPHILS # (AUTO) 9.7 10^3/uL (1.5-6.6); NEUTROPHILS % (AUTO) 60.2 %; PLT - PLATELET COUNT 381 10^3/uL (130-450); RED CELL DISTRIBUTION WIDTH 14.4 % (12.0-15.0); WHITE BLOOD COUNT 16.1 x10^3/uL (4.8-10.8)
[2020-02-02 21:13] LABS: BILIRUBIN,URINE NEGATIVE (NEGATIVE); CLARITY,URINE HAZY (CLEAR); GLUCOSE, URINE (UA) NEGATIVE (NEGATIVE); KETONES,URINE (UA) NEGATIVE (NEGATIVE); LEUKOCYTE ESTERASE, URINE NEGATIVE (NEGATIVE); NITRITE,URINE NEGATIVE (NEGATIVE); OCCULT BLOOD,URINE LARGE (NEGATIVE); PH,URINE 5.5 PH (5.0-7.5); PROTEIN,URINE NEGATIVE (NEGATIVE); UROBILINOGEN,URINE 0.2 (NORMAL) E.U./dL (NORMAL)
[2020-02-02 21:15] LABS: HCG UR QUAL NEGATIVE
[2020-02-02] MEDS ORDERED: KETOROLAC 60 MG/2 ML VIAL IM STA (21:19)
[2020-02-02 21:20] LABS: CALCIUM 8.8 mg/dL (8.5-10.3); CREATININE 0.7 mg/dL (0.4-1.0)
[2020-02-02 21:24] LABS: BACTERIA,URINE Rare /HPF (None Seen); SQUAMOUS EPITHELIAL CELL,UR FEW Squamous (<= Few)
--- NOTE | 2020-02-02 21:37 | ED Physician Documentation ---
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 She is not able to localize the pain well but states that seems to radiate up to both sides. She states this pain is different than what she is had with cramping pain from her fibroids. She has had bleeding this past 28 days which is undulating in nature and she is passing some clots. Review of Systems Constitutional: denies: Fever, Chills, Myalgias Eyes: denies: Decreased vision Ears: denies: Ear pain Nose: denies: Rhinorrhea / runny nose, Congestion Throat: denies: Sore throat Cardiac: denies: Chest pain / pressure Respiratory: denies: Dyspnea, Cough, Wheezing GI: reports: Abdominal Pain, Nausea. denies: Vomiting, Diarrhea : reports: Other (urinary urgency). 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 Prediabetic. neuropathy - Past Surgical History Past Surgical History: No General: Cholecystectomy HEENT: Tonsil/Adenoidectomy - Present Medications Home Medications: Ambulatory Orders Medication Instructions Recorded Confirmed Folic Acid 1 tab PO DAILY 02/02/20 02/02/20 Lisinopril/Hydrochlorothiazide 1 tab PO DAILY 02/02/20 02/02/20 [Zestoretic 20-25 mg Tablet] Pregabalin [Lyrica] 02/02/20 Oxycodone HCl/Acetaminophen 1 - 2 each PO Q6H PRN #14 tablet 02/03/20 [Percocet 5-325 mg Tablet] - Allergies Allergies/Adverse Reactions: Allergies Allergy/AdvReac Type Severity Reaction Status Date / Time metronidazole [From Flagyl] Allergy projectile Verified 02/02/20 20:49 vomiting - Social History Does the pt smoke?: No Smoking Status: Never smoker Does the pt drink ETOH?: No Does the pt have substance abuse?: No - Immunizations Immunizations are current?: Yes Immunizations: TDAP >10years/unknown - POLST Patient has POLST: No PD ED PE NORMAL - Vitals Vital signs reviewed: Yes (tachy and hypertesive ) - General General: Alert and oriented X 3, No acute distress, Well developed/nourished - HEENT HEENT: Atraumatic, PERRL, EOMI - Neck Neck: Supple, no meningeal sign, No bony TTP - Cardiac Cardiac: No murmur, Other (tachycardic to 110) - Respiratory Respiratory: No respiratory distress, Clear bilaterally - Abdomen Abdomen: Normal bowel sounds, Soft, Non distended, No organomegaly, Other (mild suprapubic tenderness) - Back Back: No CVA TTP, No spinal TTP - Derm Derm: Normal color, Warm and dry, No rash - Extremities Extremities: No deformity, No edema - Neuro Neuro: Alert and oriented X 3, 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, No motor deficit, No sensory deficit, Normal speech Eye Opening: Spontaneous Motor: Obeys Commands Verbal: Oriented GCS Score: 15 - Psych Psych: Normal mood, Normal affect Results - Vitals Vitals: Vital Signs - 24 hr 02/02/20 02/02/20 02/02/20 20:44 21:02 23:31 Temperature 36.8 C 36.8 C Heart Rate 105 H 105 H 98 Respiratory 18 18 18 Rate Blood Pressure 134/93 H 134/93 H 108/57 L O2 Saturation 100 100 96 02/03/20 00:56 Temperature Heart Rate 90 Respiratory Rate Blood Pressure 124/79 O2 Saturation 97 Oxygen O2 Source Room air - Labs Labs: Laboratory Tests 02/02/20 02/02/20 02/02/20 21:00 21:04 21:04 WBC 16.1 H RBC 4.60 Hgb 11.5 L Hct 37.0 MCV 80.4 L MCH 25.0 L MCHC 31.1 L RDW 14.4 Plt Count 381 MPV 8.8 Neut # (Auto) 9.7 H Lymph # (Auto) 4.6 H Falls # (Auto) 1.3 H Eos # (Auto) 0.2 Baso # (Auto) 0.1 Absolute Nucleated RBC 0.00 Nucleated RBC % 0.0 Sodium 138 Potassium 3.8 Chloride 101 Carbon Dioxide 25 Anion Gap 12.0 BUN 10 Creatinine 0.7 Estimated GFR (MDRD) 99 Glucose 135 H Calcium 8.8 Urine Color YELLOW Urine Clarity HAZY Urine pH 5.5 Ur Specific [place] 1.025 Urine Protein NEGATIVE Urine Glucose (UA) NEGATIVE Urine Ketones NEGATIVE Urine Occult Blood LARGE H Urine Nitrite NEGATIVE Urine Bilirubin NEGATIVE Urine Urobilinogen 0.2 (NORMAL) Ur Leukocyte Esterase NEGATIVE Urine RBC 11-25 H Urine WBC 0-3 Ur Squamous Epith Cells FEW Squamous Urine Bacteria Rare Ur Microscopic Review INDICATED Urine Culture Comments NOT INDICATED Urine HCG, Qual NEGATIVE - Rads (name of study) CT ab/pel w/o Radiology: Prelim report reviewed (Impression: 1. Mildly enlarged fatty liver. 2 Left kidney lower pole 4 x 2 mm dystrophic cortical calcification versus c alyceal calculus. No hydronephrosis or ureteral calculus bilaterally.3 No bowel obstruction or inflammation. No free air or fluid.), EMP read indepedently, See rad report pelvic ultrasound Radiology: Prelim report reviewed (Impression: Normal size uterus containing a small posterior corpus intramural fibroid. Unremarkable endometrium. Physiologic appearance of the ovaries, without torsion. Possible left paraovarian cyst or loculated ascites, seen only on the transabdominal scan.), EMP read indepedently, See rad report Procedures - Bedside sono Bedside sono by EMP: With use of bedside ultrasound the kidneys are imaged there is evidence of hydronephrosis on the left side without sonographic tenderness to the kidney. The right kidney is without evidence of hydronephrosis or tenderness. PD MEDICAL DECISION MAKING - ED course Complexity details: reviewed old records, reviewed results, re-evaluated patient, considered differential, d/w patient ED course: 29-year-old female with history of polycystic ovarian syndrome and uterine fibroid has developed acute pain has hematuria on her urinalysis without evidence of infection and her pain is not well localized. My initial concern with this patient was anemia from bleeding and increased pain from her uterine fibroid. Review of her radiology report from her fibroids showed nonobstructing stone on the left side and today there is evidence of hydronephrosis on the left side. I suspect this may be the reason for the patient's pain and a CT scan of the abdomen pelvis is obtained.The patient is administered a liter of fluid and 30 mg of Toradol intravenously as well as Zofran. She has some improvement and the CT is normal without showing hydro or stone. An ultrasound of the pelvis is obtained and shows a small fibroid and physiologic ovaries. Departure - Departure Disposition: Home, Self Care Clinical Impression: Chronic female pelvic pain Condition: Stable Instructions: ED Pelvic Pain [facility] Follow-Up: Elizabeth Weir PA [Primary Care Provider] - [facility] [Provider Group] Prescriptions: Oxycodone HCl/Acetaminophen [Percocet 5-325 mg Tablet] 1 - 2 each PO Q6H PRN #14 tablet PRN Reason: pain
[2020-02-02] MEDS ORDERED: SODIUM CHLORIDE 0.9% 1,000 ML IV STA (21:40)
[2020-02-02] MEDS ORDERED: KETOROLAC 30 MG/ML VIAL IVP STA (21:40)
[2020-02-02] MEDS ORDERED: ONDANSETRON 4 MG/2 ML VIAL IVP STA (21:40)
[2020-02-03 00:57] VITALS: BP 124/79
--- NOTE | 2020-02-03 10:15 | CT Report ---
PROCEDURE: Abdomen/Pelvis WO INDICATIONS: pelvic pain L hydro on bedside TECHNIQUE: Noncontrast 5 mm thick sections acquired from the diaphragms to the symphysis. 5 mm coronal and sagi ttal reformats were then performed. For radiation dose reduction, the following was used: automated exposure control, adjustment of mA and/or kV according to patient size. COMPARISON: Correlation is made with prior pelvic ultrasound examinations, 11/13/2019, and 12/20/2017 . Correlation is also made with nuclear medicine bone scan, 10/20/2019. Correlation is also made with the accompanying pelvic ultrasound, 02/02/2020. FINDINGS: Image quality: Excellent. ABDOMEN: Lung bases: Lung bases are clear. Heart size is normal. Solid organs: An enlarged, fatty liver can be seen. The spleen is unremarkable, without focal lesions . Gallbladder has been removed. Pancreas is normal in contours. No adrenal nodules. Kidneys are normal in size, without hydronephrosis. There is a nonobstructing left-sided kidney calc ified region that measures up to 7 mm, as on series 3 image 85 and on series 6 image 73. Peritoneum and bowel: Unenhanced bowel loops demonstrate normal wall thickness and caliber. No free fluid or air. A normal appendix is incidentally noted. Nodes and vessels: No retroperitoneal or mesenteric adenopathy by size criteria. Aorta and inferior vena cava are normal in caliber. Miscellaneous: No ventral hernias. PELVIS: Genitourinary: Bladder wall thickness is normal. The uterus demonstrates an unremarkable appearance for age. No adnexal masses are seen. Miscellaneous: No inguinal hernias or adenopathy. Bones: No suspicious bony lesions. No vertebral body compression fractures. IMPRESSION: No left-sided hydronephrosis or hydroureter. No stones are seen along the course of the left ureter. There is a potential nonobstructing 7 mm left-sided kidney stone noted. However, differential diagnos is includes dystrophic calcification. Incidental note is made of: Enlarged, fatty liver Cholecystectomy Note: No significant discrepancy from the preliminary report. Reviewed by: Cedrick Corral MD on 02/03/2020 9:13 AM [place] Approved by: Cedrick Corral MD on 02/03/2020 9:13 AM [facility] Station ID: [id number]
--- NOTE | 2020-02-03 10:19 | Ultrasound Report ---
PROCEDURE: Pelvic w/Transvag+Doppler Ltd INDICATIONS: pelvic pain severe ? torsion TECHNIQUE: Real-time scanning was performed of the pelvic organs, with image documentation. Additional endovagi nal scanning was necessary due to incomplete visualization of the adnexal and endometrial structures by transabdominal scanning. COMPARISON: Prior pelvic ultrasound examinations, 11/13/2019, 12/20/2018. Correlation is made with the accompanying abdomen and pelvis CT, 02/02/2020. FINDINGS: Transabdominal scanning: Limited scanning through the kidneys shows no hydronephrosis. No pathologi c free abdominal or pelvic fluid. Endovaginal scanning: Uterus: Uterus is normal in size at 8.6 x 3.6 x 5.6 cm. The endometrium measures 13 mm in combined thickness. An intramural fibroid is seen along the midline posteriorly that measures 1.5 x 1.3 x 1.1 cm, which previously measured 1.1 x 1.2 x 1.6 cm. Nabothian cysts are incidentally noted, with the la rgest measuring up to 1.1 cm. Ovaries: The right ovary measures 3.2 x 3 x 2.6 cm. The left ovary measures 3.3 x 2.1 x 2.7 cm. The ovaries demonstrate an unremarkable appearance, without abnormal follicles. Normal-appearing arterial flow is demonstrated to each ovary, although arterial flow is only well seen along the periphery of the right ovary. There is a left adnexal cyst seen that measures up to 2.1 cm, which is only seen transabdominally. IMPRESSION: No findings of ovarian torsion are seen. Incidental note is made of: Stable uterine fibroid Nabothian cysts 2.1 cm left adnexal cyst Note: No significant discrepancy from the preliminary report. Reviewed by: Cedrick Corral MD on 02/03/2020 9:18 AM [place] Approved by: Cedrick Corral MD on 02/03/2020 9:18 AM [facility] Station ID: [id number]
== END 2020-02-03 01:28 | disposition home or self-care (01) ==
LOC: ED 20:41
DX: R10.2 Pelvic and perineal pain (principal); G89.29 Other chronic pain; E28.2 Polycystic ovarian syndrome; N92.0 Excessive and frequent menstruation with regular cycle; I10 Essential (primary) hypertension; E11.9 Type 2 diabetes mellitus without complications; R31.9 Hematuria, unspecified
CPT/HCPCS: 36415; 74176; 80048; 81001; 81003; 81025; 85025; 86900; 86901; 87086; 93976; 96374; 96375; 99284

== ENCOUNTER 2020-02-12 07:00 | Outpatient (CLI) | payer MEDICAID ==
[2020-02-12 19:07] LABS: ABSOLUTE RETICS # AUTO 0.106 10^6/uL (0.020-0.110); BASOPHILS # (AUTO) 0.1 10^3/uL (0.0-0.1); BASOPHILS % (AUTO) 0.7 %; EOSINOPHILS # (AUTO) 0.3 10^3/uL (0.0-0.7); EOSINOPHILS % (AUTO) 1.8 %; HGB - HEMOGLOBIN 11.3 g/dL (12.0-16.0); LYMPHOCYTES # (AUTO) 4.5 10^3/uL (1.5-3.5); LYMPHOCYTES % (AUTO) 24.8 %; MEAN CORPUSCULAR HGB CONC 30.1 g/dL (32.0-36.0); MONOCYTES # (AUTO) 1.2 10^3/uL (0.0-1.0); MONOCYTES % (AUTO) 6.7 %; NEUTROPHILS # (AUTO) 11.7 10^3/uL (1.5-6.6); NEUTROPHILS % (AUTO) 65.3 %; PLT - PLATELET COUNT 414 10^3/uL (130-450); RED BLOOD COUNT 4.52 10^6/uL (4.20-5.40); RED CELL DISTRIBUTION WIDTH 14.6 % (12.0-15.0)
[2020-02-12 19:45] LABS: ALBUMIN/GLOBULIN RATIO 1.1 (1.0-2.2); BILIRUBIN,TOTAL 0.4 mg/dL (0.2-1.0); CALCIUM 9.4 mg/dL (8.5-10.3); CREATININE 0.5 mg/dL (0.4-1.0); TOTAL PROTEIN 7.7 g/dL (6.7-8.2)
== END 2020-02-12 23:59 | disposition home or self-care (01) ==
LOC: LAB.WCP 07:00
PROVIDERS: ATTEND Physician Assistant
DX: D51.0 Vitamin B12 deficiency anemia due to intrinsic factor deficiency (principal); N92.0 Excessive and frequent menstruation with regular cycle
CPT/HCPCS: 36415; 80053; 82607; 82746; 83540; 84466; 85025; 85045

== ENCOUNTER 2020-02-29 10:11 | Outpatient (CLI) | payer MEDICAID | END 2020-02-29 10:12 | disposition home or self-care (01) | LOC: COV 10:11 | PROVIDERS: ATTEND Obstetrics & Gynecology | DX: Z01.812 Encounter for preprocedural laboratory examination (principal); Z20.828 Contact with and (suspected) exposure to other viral communicable diseases; N92.0 Excessive and frequent menstruation with regular cycle; D25.9 Leiomyoma of uterus, unspecified; E28.2 Polycystic ovarian syndrome ==

== ENCOUNTER 2020-03-04 16:59 | Outpatient (CLI) | payer MEDICAID ==
[2020-03-04 17:41] LABS: BASOPHILS # (AUTO) 0.1 10^3/uL (0.0-0.1); BASOPHILS % (AUTO) 0.8 %; EOSINOPHILS # (AUTO) 0.4 10^3/uL (0.0-0.7); EOSINOPHILS % (AUTO) 2.5 %; HGB - HEMOGLOBIN 10.9 g/dL (12.0-16.0); LYMPHOCYTES # (AUTO) 4.5 10^3/uL (1.5-3.5); MEAN CORPUSCULAR HEMOGLOBIN 24.8 pg (27.0-31.0); MEAN CORPUSCULAR HGB CONC 30.4 g/dL (32.0-36.0); MEAN CORPUSCULAR VOLUME 81.5 fL (81.0-99.0); MONOCYTES # (AUTO) 1.1 10^3/uL (0.0-1.0); MONOCYTES % (AUTO) 7.3 %; NEUTROPHILS # (AUTO) 9.2 10^3/uL (1.5-6.6); NEUTROPHILS % (AUTO) 59.6 %; PLT - PLATELET COUNT 368 10^3/uL (130-450); RED BLOOD COUNT 4.39 10^6/uL (4.20-5.40); RED CELL DISTRIBUTION WIDTH 14.9 % (12.0-15.0); WHITE BLOOD COUNT 15.5 x10^3/uL (4.8-10.8)
[2020-03-04 17:52] LABS: % IRON SATURATION 5 % (20-50); IRON 27 ug/dL (28-170); TOTAL IRON BINDING CAPACITY 507 ug/dL (250-450); TRANSFERRIN 362 mg/dL (192-382)
[2020-03-04 20:21] LABS: HEMOGLOBIN A1c% 6.4 % (4.27-6.07)
== END 2020-03-04 17:00 | disposition home or self-care (01) ==
LOC: LAB 16:59
PROVIDERS: ATTEND Obstetrics & Gynecology
DX: D51.0 Vitamin B12 deficiency anemia due to intrinsic factor deficiency (principal); E11.9 Type 2 diabetes mellitus without complications
CPT/HCPCS: 36415; 83036; 83540; 84466; 85025

== ENCOUNTER 2020-03-04 17:06 | Outpatient (CLI) | payer MEDICAID ==
--- NOTE | 2020-03-05 10:39 | Ultrasound Report ---
PROCEDURE: Pelvic w/Transvaginal INDICATIONS: MENORRHAGIA TECHNIQUE: Real-time scanning was performed of the pelvic organs, with image documentation. Additional endovagi nal scanning was necessary due to incomplete visualization of the adnexal and endometrial structures by transabdominal scanning. COMPARISON: 02/02/2020 FINDINGS: The uterus measures 4.3 x 5.5 x 8.0 cm. There is an intramural uterine fibroid in the posterior uteri ne wall at midline in the mid uterine segment. This measures approximately 1.1 x 1.4 x 1.6 cm, slight ly increased from the comparison exam. No additional uterine mass identified. The endometrium is thic kened up to 15 mm. The right ovary measures 2.4 x 2.8 x 3.1 cm with multiple follicles. The left ovary measures 2.4 x 2. 9 x 2.9 cm. There is a paraovarian cyst measuring approximately 1.9 cm, unchanged from prior study. IMPRESSION: Unchanged left paraovarian cyst. Slightly increased size of uterine fibroid. Thickened endometrium consistent with history of menorrhagia. Reviewed by: Carlyle Espinoza MD on 03/05/2020 10:38 AM PST Approved by: Carlyle Espinoza MD on 03/05/2020 10:38 AM PST Station ID: [id number]
== END 2020-03-04 17:07 | disposition home or self-care (01) ==
LOC: DI 17:06
PROVIDERS: ATTEND Obstetrics & Gynecology
DX: D25.1 Intramural leiomyoma of uterus (principal); N83.202 Unspecified ovarian cyst, left side; R93.89 Abnormal findings on diagnostic imaging of other specified body structures

== ENCOUNTER 2020-03-06 08:52 | Day surgery (SDC) | payer MEDICAID ==
[2020-03-06] MEDS ORDERED: LEVONORGESTREL 14 MCG/24 HR IUD IY ONE (08:53)
[2020-03-06] MEDS ORDERED: LACTATED RINGERS 1,000 ML IV ONE ×2 (09:07→11:09)
[2020-03-06] MEDS ORDERED: ceFAZolin 2 GM/50 ML 2 GM/50 ML BAG IV ONE (09:34)
--- NOTE | 2020-03-06 09:42 | ANESTHESIA ---
Pre-Anesthesia VS, & Labs - Diagnosis menorrhagia, uterine fibroids, PCOS - Procedure Myosure hysteroscopy, D&C, IUD placement Vital Signs: Temp Pulse Resp BP Pulse Ox 36.3 C L 94 20 149/77 H 100 03/06/20 09:17 03/06/20 09:17 03/06/20 09:17 03/06/20 09:17 03/06/20 09:17 Height: 5 ft 7 in Weight (kg): 162.6 kg Body Mass Index: 56.1 BMI Classification: Morbidly Obese - NPO >8 hours - Is Patient ?: No - Lab Results Lab results reviewed: Yes Home Medications and Allergies Home Medications: Ambulatory Orders Cyanocobalamin [Vitamin B-12] 1,000 mcg IM OAW 02/27/20 Dicyclomine [Bentyl] 10 mg PO TID PRN 02/27/20 Metformin HCl [Glucophage Xr] 500 mg PO DAILY 02/27/20 Pregabalin [Lyrica] 200 mg PO TID 02/27/20 Tranexamic Acid 1,300 mg PO Q8HR PRN 02/27/20 Folic Acid 1 tab PO DAILY 02/02/20 Lisinopril/Hydrochlorothiazide [Zestoretic 20-25 mg Tablet] 1 tab PO DAILY 02/02/20 Cyanocobalamin [Vitamin B-12] 1,000 mcg IM OAW 02/27/20 Dicyclomine [Bentyl] 10 mg PO TID PRN 02/27/20 Metformin HCl [Glucophage Xr] 500 mg PO DAILY 02/27/20 Pregabalin [Lyrica] 200 mg PO TID 02/27/20 Tranexamic Acid 1,300 mg PO Q8HR PRN 02/27/20 Allergies/Adverse Reactions: Allergies Allergy/AdvReac Type Severity Reaction Status Date / Time cephalexin [From Keflex] Allergy Rash Verified 02/27/20 14:38 metronidazole [From Flagyl] Allergy projectile Verified 02/02/20 20:49 vomiting Anes History & Medical History - Anesthetic History Anesthesia Complications: reports: No previous complications Family history of Anesthesia Complications: Denies Family history of Malignant Hyperthermia: Denies - Medical History Cardiovascular: reports: Hypertension Pulmonary: reports: Sleep apnea Gastrointestinal: reports: Chronic diarrhea Urinary: reports: None Neuro: reports: Other Musculoskeletal: reports: None Endocrine/Autoimmune: reports: Type 2 diabetes Blood Disorders: reports: None Skin: reports: Herpes zoster Smoking Status: Never smoker - Surgical History General: Cholecystectomy, Colonoscopy Eyes Ears Nose Throat (EENT): Tonsil/Adenoidectomy Gynecologic: Other Results - EKG Results EKG Comparison: Reviewed EKG (SR@93), Normal EKG Exam General: Alert, Oriented x3, Cooperative Dental: WNL Mouth Opening: Greater than 4 Fingerbreadths Neck Mobility: Normal Mallampati classification: I Thyromental Distance: 4-6 cm Respiratory: Lungs clear, Normal breath sounds, No respiratory distress Cardiovascular: Regular rate Neurological: Normal speech Mental/Cognitive Status: Alert/Oriented X3, Normal for patient Cognitive Status: Within normal limits Plan Anesthesia Type: General Consent for Procedure(s) Verified and Reviewed: Yes Code Status: Attempt Resuscitation ASA classification: 2-Mild systemic disease Is this case an emergency?: No
[2020-03-06] MEDS ORDERED: MIDAZOLAM 2 MG/2 ML VIAL ONE (09:46)
[2020-03-06] MEDS ORDERED: fentaNYL 100 MCG/2 ML VIAL ONE (09:46)
[2020-03-06] MEDS ORDERED: LIDOCAINE-MPF 2% 5 ML VIAL ONE (09:46)
[2020-03-06] MEDS ORDERED: ONDANSETRON 4 MG/2 ML VIAL ONE (09:47)
[2020-03-06] MEDS ORDERED: PROPOFOL 200 MG/20 ML VIAL IVP ONE (09:47)
[2020-03-06] MEDS ORDERED: DEXAMETHASONE 4 MG/ML VIAL ONE (09:47)
[2020-03-06] MEDS ORDERED: ACETAMINOPHEN 1,000 MG/100 ML 100 ML IV ONE (09:53)
[2020-03-06] MEDS ORDERED: GABAPENTIN 400 MG CAPSULE ONE (09:53)
[2020-03-06] MEDS ORDERED: CELECOXIB 100 MG CAPSULE PO ONE (09:53)
[2020-03-06] MEDS ORDERED: SUCCINYLCHOLINE 200 MG/10 ML VIAL ONE (09:54)
[2020-03-06] MEDS ORDERED: BUPIVACAINE 0.5%-EPI 1:200000 PF 30 ML VIAL ONE (10:06)
[2020-03-06] MEDS ORDERED: LIDOCAINE 1% 50 ML MDV ONE (10:06)
[2020-03-06] MEDS ORDERED: LIDOCAINE 1% 50 ML MDV SUBQ ONE (10:37)
[2020-03-06] MEDS ORDERED: BUPIVACAINE 0.5%-EPI 1:200000 PF 30 ML VIAL SUBQ ONE (10:39)
[2020-03-06] MEDS ORDERED: ceFAZolin 1 GM VIAL ONE (10:40)
[2020-03-06] MEDS ORDERED: METOCLOPRAMIDE 10 MG/2 ML VIAL IVP PRN (11:20)
[2020-03-06] MEDS ORDERED: ONDANSETRON 4 MG/2 ML VIAL IVP PRN ×2 (11:20→11:46)
[2020-03-06] MEDS ORDERED: NALOXONE 0.4 MG/ML VIAL IVP PRN (11:20)
[2020-03-06] MEDS ORDERED: HYDROmorphone 0.5 MG/0.5 ML SYRINGE IVP PRN (11:20)
[2020-03-06] MEDS ORDERED: MORPHINE 2 MG/ML CARPUJECT IVP PRN (11:20)
[2020-03-06] MEDS ORDERED: ATROPINE ABBOJECT 1 MG/10 ML SYRINGE IVP PRN (11:20)
[2020-03-06] MEDS ORDERED: ePHEDrine 50 MG/ML VIAL IVP PRN (11:20)
[2020-03-06] MEDS ORDERED: fentaNYL 100 MCG/2 ML VIAL IVP PRN (11:20)
--- NOTE | 2020-03-06 11:25 | OPERATIVE REPORT ---
Operative Report - General Procedure Date: 03/06/20 Planned Procedure: HYSTERSCOPY WITH PLACEMENT OF CHANTELLE IUD Pre-Op Diagnosis: MENORRHAGIA PCOS Procedure Performed: HYSTERSCOPY WITH RESECTION OF ENDOMETRIAL POLYPS AND PALCEMENT OF CHANTELLE IUD Post Op Diagnosis: ENDOMETRIAL POLYPS - Procedure Note Primary Surgeon: PRASHANT ESPINAL MD Anesthesia Provider: EKREN MEJIA CRNA Pathology: ENDOMETRIAL POLYPS IV Fluids (mL): 1,000 Estimated Blood Loss (mL): 6 Urine Output (mL): 100
[2020-03-06] MEDS ORDERED: LORazepam 2 MG/ML VIAL IVP PRN (11:46)
[2020-03-06] MEDS ORDERED: DOXYCYCLINE 100 MG TABLET PO STA (11:46)
[2020-03-06] MEDS ORDERED: oxyCODONE 5 MG TABLET PO PRN (11:46)
[2020-03-06] MEDS ORDERED: LACTATED RINGERS 1,000 ML IV SCH (12:00)
--- NOTE | 2020-03-06 12:10 | OPERATIVE REPORT ---
DATE OF SERVICE: 03/06/2020 Physician: Edenilson Kingsley MD PREOPERATIVE DIAGNOSES: Menorrhagia, thickened endometrium, polycystic ovary disease. POSTOPERATIVE DIAGNOSES: Menorrhagia, thickened endometrium, polycystic ovary disease. PROCEDURE PERFORMED: Hysteroscopy with resection of endometrial polyp and placement of a Lindsay IUD. SURGEON: Edenilson Kingsley MD. ANESTHESIA: Sam Brandt CRNA. ANESTHETIC: General via LMA. ESTIMATED BLOOD LOSS: 5 mL IV FLUIDS: 1000 mL deficit with hysteroscopy was 450 mL. FINDINGS: Upon entering the endometrial cavity the uterus showed multiple irregularities compatible with endometrial polyps. These occurred on the right side of the patient's uterus, both anteriorly as well as posteriorly. These were removed. The fallopian tubes oses were noted both to be normal. PROCEDURE: Following adequate general anesthesia, patient placed in dorsal lithotomy position in Donald stirrups. At this point, pelvic examination under anesthesia was performed. It was somewhat unrewarding that the size, dimension and contour of the uterus could not be palpated secondary to abdominal wall thickness. The patient was then prepped and draped in the usual fashion. A speculum was placed in the vagina. The cervix visualized, grasped with a single-tooth tenaculum. The uterosacral ligaments were injected on both sides with 0.5% Marcaine with epinephrine, 5 mL in each side. At this point, the cervix was dilated to 6 mm sounded to 9 cm and then a hysteroscope was introduced. Both cornua were visualized. Upon inspecting the endometrial cavity, there were irregularities, particularly on the anterior left hand side as well as the posterior uterus. A MyoSure LITE was then introduced and these areas were shaved down to the level of the remainder of the endometrium. At this point, the area was inspected. No additional bleeding was noted, so a Lindsay IUD was placed and the strings were trimmed. The hysteroscope was reintroduced and the Lindsay appeared to be residing in the endometrial cavity. The strings were out the os at this time. At this point, the procedure was ended. The cervix was released from the single-tooth toothed tenaculum. There is no evidence of any additional bleeding. The patient tolerated the procedure well and was taken to recovery in stable condition. TD: 03/06/2020 11:37 CECIL
[2020-03-06 12:15] VITALS: BP 110/65
[2020-03-06] MEDS ORDERED: oxyCODONE 5 MG TABLET ONE (12:16)
--- NOTE | 2020-03-06 13:40 | ANESTHESIA POST OP EVALUATION ---
Anesthesia Post Eval - Post Anesthesia Eval Vitals: Last Vital Signs Temp 36.2 C L 03/06/20 12:15 Pulse 80 03/06/20 12:15 Resp 12 03/06/20 12:15 BP 110/65 03/06/20 12:15 Pulse Ox 94 03/06/20 12:15 CV Function Including HR & BP: positive: Stable Pain Control: positive: Satisfactory Nausea & Vomiting: positive: Negative Mental Status: positive: Baseline Respiratory Status: Airway Patent Hydration Status: Satisfactory Anesthesia Complications: positive: None
== END 2020-03-06 08:53 | disposition home or self-care (01) ==
LOC: SDS 08:52
PROVIDERS: ATTEND Obstetrics & Gynecology
PROC: 0UB98ZX Excision of Uterus, Via Natural or Artificial Opening Endoscopic, Diagnostic (ICD-10-PCS; principal; 2020-03-06 10:00)
PROC: 0UH97HZ Insertion of Contraceptive Device into Uterus, Via Natural or Artificial Opening (ICD-10-PCS; 2020-03-06 10:00)
DX: N84.0 Polyp of corpus uteri (principal); N92.0 Excessive and frequent menstruation with regular cycle; E28.2 Polycystic ovarian syndrome; L68.0 Hirsutism; D51.0 Vitamin B12 deficiency anemia due to intrinsic factor deficiency; E66.01 Morbid (severe) obesity due to excess calories; Z68.43 Body mass index [BMI] 50.0-59.9, adult; I10 Essential (primary) hypertension; G47.30 Sleep apnea, unspecified; E11.40 Type 2 diabetes mellitus with diabetic neuropathy, unspecified; K52.9 Noninfective gastroenteritis and colitis, unspecified; Z79.84 Long term (current) use of oral hypoglycemic drugs; Z79.899 Other long term (current) drug therapy
CPT/HCPCS: 58300; 58558; 86850; 86900; 86901; 93005; A9270; J0131; J0330; J0690; J1170; J7120; J7301

== ENCOUNTER 2020-04-16 08:00 | Outpatient (CLI) | payer MEDICAID ==
[2020-04-16 23:38] LABS: CANDIDA GROUP DNA NEGATIVE (NEGATIVE); CANDIDA KRUSEI DNA NEGATIVE (NEGATIVE); TRICHOMONAS VAGINALIS DNA NEGATIVE (NEGATIVE)
== END 2020-04-16 23:59 | disposition home or self-care (01) ==
LOC: LAB.R 08:00
PROVIDERS: ATTEND Obstetrics & Gynecology
DX: N92.1 Excessive and frequent menstruation with irregular cycle (principal); R10.2 Pelvic and perineal pain
CPT/HCPCS: 87661; 87801

== ENCOUNTER 2020-04-24 10:25 | Emergency (ER) | payer MEDICAID ==
[2020-04-24] MEDS ORDERED: ONDANSETRON 4 MG/2 ML VIAL IVP STA (10:37)
[2020-04-24] MEDS ORDERED: HYDROmorphone 1 MG/ML CARPUJECT IVP STA ×3 (10:37→13:23)
[2020-04-24] MEDS ORDERED: KETOROLAC 30 MG/ML VIAL IVP STA (10:37)
--- NOTE | 2020-04-24 10:39 | ED Physician Documentation ---
PD HPI ABD PAIN - Stated complaint Stated Complaint: ABD PX - Chief complaint Chief Complaint: Abd Pain - History obtained from History obtained from: Patient - Additional information Additional information: 29-year-old woman with chronic pelvic pain related to PCOS. About a month ago she had a hysteroscopy with polyp removal and IUD placement for bleeding. Bleeding did not slow and about a week ago had the IUD removed. Bleeding continues but has slowed slightly but over the last 2 days pelvic pain has been worse, mid pelvic to left side. It was associated with a fever 102 at home last night. There is nausea with it. She denies vaginal discharge. Low concern for STDs given that she is in a monogamous stable relationship. Review of Systems Ten Systems: 10 systems reviewed and negative Constitutional: reports: Fever, Chills Nose: denies: Rhinorrhea / runny nose Throat: denies: Sore throat Cardiac: denies: Chest pain / pressure, Palpitations Respiratory: denies: Dyspnea, Cough GI: reports: Abdominal Pain, Nausea. 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 : None HEENT: Chronic vision loss Psych: Anxiety, Panic attacks Musculoskeletal: None Derm: Herpes zoster - Past Surgical History Past Surgical History: No General: Cholecystectomy, Colonoscopy /LAUNCHMAN: Other HEENT: Tonsil/Adenoidectomy - Present Medications Home Medications: Ambulatory Orders Medication Instructions Recorded Confirmed Folic Acid 1 tab PO DAILY 02/02/20 04/24/20 Lisinopril/Hydrochlorothiazide 1 tab PO DAILY 02/02/20 04/24/20 [Zestoretic 20-25 mg Tablet] Cyanocobalamin [Vitamin B-12] 1,000 mcg IM OAW 02/27/20 04/24/20 Dicyclomine [Bentyl] 10 mg PO TID PRN 02/27/20 04/24/20 Metformin HCl [Glucophage Xr] 500 mg PO DAILY 02/27/20 04/24/20 Pregabalin [Lyrica] 200 mg PO TID 02/27/20 04/24/20 Tranexamic Acid 1,300 mg PO Q8HR PRN 02/27/20 04/24/20 Acyclovir [Zovirax] 800 mg PO 5XD #50 04/24/20 HYDROcod/ACETAM 5/325 [[place] 5/325] 1 - 2 tab PO Q6H PRN #15 tab 04/24/20 Ibuprofen [Motrin] 800 mg PO Q8H PRN #30 tab 04/24/20 - Allergies Allergies/Adverse Reactions: Allergies Allergy/AdvReac Type Severity Reaction Status Date / Time cephalexin [From Keflex] Allergy Rash Verified 04/24/20 10:33 metronidazole [From Flagyl] Allergy projectile Verified 04/24/20 10:33 vomiting - Social History Does the pt smoke?: No Smoking Status: Never smoker Does the pt drink ETOH?: No Does the pt have substance abuse?: No - Immunizations Immunizations are current?: Yes Immunizations: TDAP >10years/unknown - POLST Patient has POLST: No PD ED PE NORMAL - Vitals Vital signs reviewed: Yes - General General: Alert and oriented X 3, No acute distress - HEENT HEENT: PERRL, EOMI - Neck Neck: Supple, no meningeal sign, No bony TTP - Cardiac Cardiac: RRR, No murmur - Respiratory Respiratory: No respiratory distress, Clear bilaterally - Abdomen Abdomen: Other (Suprapubic tenderness without surgical signs) - Female 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 DAVIS), Other (Moderate bimanual tenderness in the midline and left adnexa without tenderness in the right adnexa.) - Back Back: No CVA TTP, No spinal TTP - Derm Derm: Normal color, Warm and dry - Extremities Extremities: No edema, No calf tenderness / cord - Neuro Neuro: Alert and oriented X 3, Normal speech Results - Vitals Vitals: Vital Signs - 24 hr 04/24/20 04/24/20 04/24/20 10:30 11:07 11:30 Temperature 36.7 C Heart Rate 107 H 87 92 Respiratory 20 19 14 Rate Blood Pressure 154/118 H 140/81 H 140/81 H O2 Saturation 100 98 99 04/24/20 04/24/20 04/24/20 12:00 12:30 13:32 Temperature Heart Rate 85 82 78 Respiratory 20 16 20 Rate Blood Pressure 115/73 102/51 L 112/55 L O2 Saturation 99 96 100 04/24/20 14:00 Temperature 36.7 C Heart Rate 70 Respiratory 19 Rate Blood Pressure 110/62 O2 Saturation 100 Oxygen O2 Source Room air - Labs Labs: Laboratory Tests 04/24/20 04/24/20 04/24/20 10:42 10:42 10:47 WBC 15.0 H RBC 4.53 Hgb 11.0 L Hct 36.6 L MCV 80.8 L MCH 24.3 L MCHC 30.1 L RDW 14.4 Plt Count 417 MPV 9.1 Neut # (Auto) 9.5 H Lymph # (Auto) 3.9 H [place] # (Auto) 1.2 H Eos # (Auto) 0.2 Baso # (Auto) 0.1 Absolute Nucleated RBC 0.00 Nucleated RBC % 0.0 Sodium 139 Potassium 3.8 Chloride 102 Carbon Dioxide 23 Anion Gap 14.0 H BUN 8 Creatinine 0.6 Estimated GFR (MDRD) 118 Glucose 122 H Lactic Acid 1.9 Calcium 9.2 Urine Color Urine Clarity Urine pH Ur Specific [place] Urine Protein Urine Glucose (UA) Urine Ketones Urine Occult Blood Urine Nitrite Urine Bilirubin Urine Urobilinogen Ur Leukocyte Esterase Urine RBC Urine WBC Ur Squamous Epith Cells Urine Bacteria Ur Microscopic Review Urine Culture Comments Urine HCG, Qual 04/24/20 11:12 WBC RBC Hgb Hct MCV MCH MCHC RDW Plt Count MPV Neut # (Auto) Lymph # (Auto) [place] # (Auto) Eos # (Auto) Baso # (Auto) Absolute Nucleated RBC Nucleated RBC % Sodium Potassium Chloride Carbon Dioxide Anion Gap BUN Creatinine Estimated GFR (MDRD) Glucose Lactic Acid Calcium Urine Color YELLOW Urine Clarity SL. CLOUDY Urine pH 7.0 Ur Specific [place] 1.020 Urine Protein 30 H Urine Glucose (UA) NEGATIVE Urine Ketones NEGATIVE Urine Occult Blood LARGE H Urine Nitrite NEGATIVE Urine Bilirubin NEGATIVE Urine Urobilinogen 0.2 (NORMAL) Ur Leukocyte Esterase TRACE H Urine RBC 11-25 H Urine WBC 11-25 H Ur Squamous Epith Cells MANY Squamous H Urine Bacteria Moderate H Ur Microscopic Review INDICATED Urine Culture Comments NOT INDICATED Urine HCG, Qual NEGATIVE PD MEDICAL DECISION MAKING - ED course ED course: 29-year-old woman with an acute exacerbation of chronic pelvic pain. Pain was managed here with divided doses of medications and she was comfortable. Nontend er on reevaluation prior to discharge. Fell but ultrasound demonstrates only small free fluid, wonder if that may be a recently ruptured cyst, also stable small uterine fibroid. Gynecology follow-up was recommended. Her leukocytosis is at its baseline. Of note incidentally she does have a cold sore on the right upper lip and requested acyclovir. Urine is contaminated but not repeated as her symptoms would be very atypical for her cystitis. Departure - Departure Disposition: 01 Home, Self Care Clinical Impression: Pelvic pain Condition: Good Record reviewed to determine appropriate education?: Yes Instructions: ED Pelvic Pain [facility] Follow-Up: Edenilson Kingsley MD [Provider Admit Priv/Credential] - Prescriptions: Ibuprofen [Motrin] 800 mg PO Q8H PRN #30 tab PRN Reason: PAIN &/OR FEVER HYDROcod/ACETAM 5/325 [[place] 5/325] 1 - 2 tab PO Q6H PRN #15 tab PRN Reason: Pain Acyclovir [Zovirax] 800 mg PO 5XD #50 Discharge Date/Time: 04/24/20 14:02
[2020-04-24 10:49] LABS: BASOPHILS # (AUTO) 0.1 10^3/uL (0.0-0.1); BASOPHILS % (AUTO) 0.6 %; EOSINOPHILS # (AUTO) 0.2 10^3/uL (0.0-0.7); EOSINOPHILS % (AUTO) 1.1 %; HCT - HEMATOCRIT 36.6 % (37.0-47.0); LYMPHOCYTES # (AUTO) 3.9 10^3/uL (1.5-3.5); LYMPHOCYTES % (AUTO) 26.3 %; MEAN CORPUSCULAR HEMOGLOBIN 24.3 pg (27.0-31.0); MEAN CORPUSCULAR HGB CONC 30.1 g/dL (32.0-36.0); MEAN CORPUSCULAR VOLUME 80.8 fL (81.0-99.0); MEAN PLATELET VOLUME 9.1 fL (7.9-10.8); MONOCYTES # (AUTO) 1.2 10^3/uL (0.0-1.0); MONOCYTES % (AUTO) 7.7 %; NEUTROPHILS # (AUTO) 9.5 10^3/uL (1.5-6.6); NEUTROPHILS % (AUTO) 63.8 %; PLT - PLATELET COUNT 417 10^3/uL (130-450); RED BLOOD COUNT 4.53 10^6/uL (4.20-5.40); RED CELL DISTRIBUTION WIDTH 14.4 % (12.0-15.0)
[2020-04-24 11:04] LABS: CALCIUM 9.2 mg/dL (8.5-10.3); CREATININE 0.6 mg/dL (0.4-1.0); POTASSIUM 3.8 mmol/L (3.5-5.0)
[2020-04-24 11:19] LABS: BILIRUBIN,URINE NEGATIVE (NEGATIVE); GLUCOSE, URINE (UA) NEGATIVE (NEGATIVE); KETONES,URINE (UA) NEGATIVE (NEGATIVE); LEUKOCYTE ESTERASE, URINE TRACE (NEGATIVE); NITRITE,URINE NEGATIVE (NEGATIVE); OCCULT BLOOD,URINE LARGE (NEGATIVE); PROTEIN,URINE 30 mg/dL (NEGATIVE); UROBILINOGEN,URINE 0.2 (NORMAL) E.U./dL (NORMAL)
[2020-04-24 11:21] LABS: CLARITY,URINE SL. CLOUDY (CLEAR); HCG UR QUAL NEGATIVE
[2020-04-24 11:30] LABS: BACTERIA,URINE Moderate /HPF (None Seen); SQUAMOUS EPITHELIAL CELL,UR MANY Squamous (<= Few)
[2020-04-24] MEDS ORDERED: ACYCLOVIR 200 MG CAPSULE PO STA (11:58)
--- NOTE | 2020-04-24 13:49 | Ultrasound Report ---
PROCEDURE: Pelvic w/Transvag+Doppler Comp INDICATIONS: pelvic pain TECHNIQUE: Real-time scanning was performed of the pelvic organs, with image documentation. Additional endovagi nal scanning was necessary due to incomplete visualization of the adnexal and endometrial structures by transabdominal scanning. COMPARISON: 03/04/2020, 02/02/2020 11/03/2019. FINDINGS: Small amount of fluid noted in the cul-de-sac and adjacent to the left ovary. Uterus: Uterus is normal in size at 9.2 x 4.5 x 6.4 cm. Uterus is anteverted. There is a 1.3 x 1.2 x 1.3 cm mid posterior intramural uterine fibroid which is unchanged compared to prior ultrasounds. Th e endometrium measures 2.2 mm in combined thickness. Nabothian cyst incidentally noted. Ovaries: Right ovary measures 3.4 x 2.7 x 2.1 cm with total volume of 10.5 cc. Left ovary measures 3 .8 x 2.3 x 2.6 cm with total volume of 12.3 cc. Ovaries are sonographically normal. Doppler evaluatio n of the ovaries demonstrates normal vascular flow. IMPRESSION: 1. No evidence of ovarian torsion. Please note intermittent torsion cannot be excluded by ultrasound. 2. Small uterine fibroid stable compared to prior exams. Reviewed by: Nicky Dejesus MD, PhD on 04/24/2020 1:47 PM PST Approved by: Nicky Dejesus MD, PhD on 04/24/2020 1:47 PM PST Station ID: [id number]
[2020-04-24 14:03] VITALS: BP 110/62
== END 2020-04-24 14:02 | disposition home or self-care (01) ==
LOC: ED 10:25
DX: R10.2 Pelvic and perineal pain (principal); I10 Essential (primary) hypertension; E11.9 Type 2 diabetes mellitus without complications; Z79.84 Long term (current) use of oral hypoglycemic drugs; K13.79 Other lesions of oral mucosa; N30.90 Cystitis, unspecified without hematuria
CPT/HCPCS: 36415; 76830; 76856; 80048; 81001; 81025; 83605; 85025; 93975; 96374; 96376; 99284; A9270; J1170; 81003; 87086

== ENCOUNTER 2020-09-19 20:39 | Emergency (ER) | payer MEDICAID ==
[2020-09-19] MEDS ORDERED: SODIUM CHLORIDE 0.9% 1,000 ML IV STA (21:00)
[2020-09-19] MEDS ORDERED: ONDANSETRON 4 MG/2 ML VIAL IVP STA (21:00)
[2020-09-19 21:09] LABS: BILIRUBIN,URINE NEGATIVE (NEGATIVE); CLARITY,URINE CLEAR (CLEAR); GLUCOSE, URINE (UA) NEGATIVE (NEGATIVE); KETONES,URINE (UA) NEGATIVE (NEGATIVE); LEUKOCYTE ESTERASE, URINE NEGATIVE (NEGATIVE); NITRITE,URINE NEGATIVE (NEGATIVE); OCCULT BLOOD,URINE NEGATIVE (NEGATIVE); PROTEIN,URINE NEGATIVE (NEGATIVE); UROBILINOGEN,URINE 0.2 (NORMAL) E.U./dL (NORMAL)
[2020-09-19 21:11] LABS: HCG UR QUAL NEGATIVE
[2020-09-19 21:14] LABS: BASOPHILS # (AUTO) 0.1 10^3/uL (0.0-0.1); BASOPHILS % (AUTO) 0.5 %; EOSINOPHILS # (AUTO) 0.3 10^3/uL (0.0-0.7); EOSINOPHILS % (AUTO) 1.6 %; HCT - HEMATOCRIT 38.8 % (37.0-47.0); HGB - HEMOGLOBIN 11.7 g/dL (12.0-16.0); LYMPHOCYTES # (AUTO) 4.1 10^3/uL (1.5-3.5); LYMPHOCYTES % (AUTO) 24.2 %; MEAN CORPUSCULAR HEMOGLOBIN 24.2 pg (27.0-31.0); MEAN CORPUSCULAR HGB CONC 30.2 g/dL (32.0-36.0); MEAN CORPUSCULAR VOLUME 80.2 fL (81.0-99.0); MEAN PLATELET VOLUME 8.9 fL (7.9-10.8); MONOCYTES # (AUTO) 1.2 10^3/uL (0.0-1.0); MONOCYTES % (AUTO) 6.8 %; NEUTROPHILS # (AUTO) 11.2 10^3/uL (1.5-6.6); NEUTROPHILS % (AUTO) 66.1 %; PLT - PLATELET COUNT 359 10^3/uL (130-450); RED BLOOD COUNT 4.84 10^6/uL (4.20-5.40); RED CELL DISTRIBUTION WIDTH 14.8 % (12.0-15.0)
[2020-09-19 21:27] LABS: ALBUMIN/GLOBULIN RATIO 1.1 (1.0-2.2); BILIRUBIN,TOTAL 0.5 mg/dL (0.2-1.0); CALCIUM 9.3 mg/dL (8.5-10.3); CREATININE 0.7 mg/dL (0.4-1.0); POTASSIUM 3.4 mmol/L (3.5-5.0); TOTAL PROTEIN 7.7 g/dL (6.7-8.2)
[2020-09-19] MEDS ORDERED: IOVERSOL 320 100 ML VIAL IVP ONE ×2 (21:42→22:13)
--- NOTE | 2020-09-19 22:48 | ED Physician Documentation ---
History of Present Illness - Stated complaint Stated Complaint: ABD PX/VOMIT - Chief complaint Chief Complaint: Abd Pain - History obtained from History obtained from: Patient - Additonal information Additional information: Patient comes emergency department chief complaint of upper abdominal pain, nausea, and vomiting. This has been going on on and off for the last week. Patient denies fevers or chills. She states some days she can hold a lot of stuff down another she cannot. Patient states she has had some intermittent watery diarrhea 2. Patient had a cholecystectomy previously but still has her appendix. She has had some on and off right-sided abdominal pain. No blood in stools. No other complaints at this time. Review of Systems Ten Systems: 10 systems reviewed and negative Constitutional: reports: Reviewed and negative Eyes: reports: Reviewed and negative Ears: reports: Reviewed and negative Nose: reports: Reviewed and negative Throat: reports: Reviewed and negative Cardiac: reports: Reviewed and negative Respiratory: reports: Reviewed and negative GI: reports: Abdominal Pain, Nausea, Vomiting, Reviewed and negative : reports: Reviewed and negative Skin: reports: Reviewed and negative Musculoskeletal: reports: Reviewed and negative Neurologic: reports: Reviewed and negative Psychiatric: reports: Reviewed and negative Endocrine: reports: Reviewed and negative Immunocompromised: reports: Reviewed and negative PD PAST MEDICAL HISTORY - Past Medical History Past Medical History: Yes Cardiovascular: Hypertension Respiratory: Sleep apnea Neuro: Other Endocrine/Autoimmune: Type 2 diabetes GI: Chronic diarrhea 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 : None HEENT: Chronic vision loss Psych: Anxiety, Panic attacks Musculoskeletal: None Derm: Herpes zoster Other Past Medical History: PCOS - Past Surgical History Past Surgical History: Yes General: Cholecystectomy, Colonoscopy /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 HEENT: Tonsil/Adenoidectomy - Present Medications Home Medications: Ambulatory Orders Medication Instructions Recorded Confirmed Pregabalin [Lyrica] 200 mg PO TID 02/27/20 09/19/20 Loperamide [Imodium] 2 mg PO BID PRN #10 09/19/20 Ondansetron Odt [Zofran] 4 mg TL Q6H PRN #10 tablet 09/19/20 - Allergies Allergies/Adverse Reactions: Allergies Allergy/AdvReac Type Severity Reaction Status Date / Time cephalexin [From Keflex] Allergy Rash Verified 09/19/20 20:55 metronidazole [From Flagyl] Allergy projectile Verified 09/19/20 20:55 vomiting - Social History Does the pt smoke?: No Smoking Status: Never smoker Does the pt drink ETOH?: No Does the pt have substance abuse?: No - Immunizations Immunizations are current?: Yes Immunizations: TDAP >10years/unknown - POLST Patient has POLST: No PD ED PE NORMAL - Vitals Vital signs reviewed: Yes - General General: Alert and oriented X 3, No acute distress - HEENT HEENT: Atraumatic, PERRL, EOMI, Moist mucous membranes - Neck Neck: Supple, no meningeal sign - Cardiac Cardiac: RRR, No murmur, Strong equal pulses - Respiratory Respiratory: No respiratory distress, Clear bilaterally - Abdomen Abdomen: Soft, Non distended, Other (Mild right upper quadrant and epigastric tenderness, no rebound or guarding.) - Derm Derm: Normal color, Warm and dry, No rash - Extremities Extremities: No deformity, No edema, No calf tenderness / cord - Neuro Neuro: Alert and oriented X 3 - Psych Psych: Normal mood, Normal affect Results - Vitals Vitals: Vital Signs - 24 hr 09/19/20 09/19/20 09/19/20 20:53 21:19 21:43 Temperature 36.9 C Heart Rate 104 H 93 93 Respiratory 16 16 16 Rate Blood Pressure 184/116 H 171/113 H 159/94 H O2 Saturation 98 98 98 09/19/20 09/19/20 22:04 23:05 Temperature 36.6 C Heart Rate 95 90 Respiratory 14 16 Rate Blood Pressure 149/95 H 150/90 H O2 Saturation 99 100 Oxygen O2 Source Room air - Labs Labs: Laboratory Tests 09/19/20 09/19/20 09/19/20 20:58 20:58 21:08 WBC 17.0 H RBC 4.84 Hgb 11.7 L Hct 38.8 MCV 80.2 L MCH 24.2 L MCHC 30.2 L RDW 14.8 Plt Count 359 MPV 8.9 Neut # (Auto) 11.2 H Lymph # (Auto) 4.1 H [place] # (Auto) 1.2 H Eos # (Auto) 0.3 Baso # (Auto) 0.1 Absolute Nucleated RBC 0.00 Nucleated RBC % 0.0 Sodium Potassium Chloride Carbon Dioxide Anion Gap BUN Creatinine Estimated GFR (MDRD) Glucose Calcium Total Bilirubin AST ALT Alkaline Phosphatase Total Protein Albumin Globulin Albumin/Globulin Ratio Lipase Urine Color YELLOW Urine Clarity CLEAR Urine pH 7.0 Ur Specific [place] 1.020 Urine Protein NEGATIVE Urine Glucose (UA) NEGATIVE Urine Ketones NEGATIVE Urine Occult Blood NEGATIVE Urine Nitrite NEGATIVE Urine Bilirubin NEGATIVE Urine Urobilinogen 0.2 (NORMAL) Ur Leukocyte Esterase NEGATIVE Ur Microscopic Review NOT INDICATED Urine Culture Comments NOT INDICATED Urine HCG, Qual NEGATIVE Stl C. diff Tox B Gene 09/19/20 09/19/20 21:08 22:55 WBC RBC Hgb Hct MCV MCH MCHC RDW Plt Count MPV Neut # (Auto) Lymph # (Auto) [place] # (Auto) Eos # (Auto) Baso # (Auto) Absolute Nucleated RBC Nucleated RBC % Sodium 139 Potassium 3.4 L Chloride 99 L Carbon Dioxide 29 Anion Gap 11.0 BUN 10 Creatinine 0.7 Estimated GFR (MDRD) 99 Glucose 139 H Calcium 9.3 Total Bilirubin 0.5 AST 17 ALT 16 Alkaline Phosphatase 75 Total Protein 7.7 Albumin 4.0 Globulin 3.7 Albumin/Globulin Ratio 1.1 Lipase 23 Urine Color Urine Clarity Urine pH Ur Specific [place] Urine Protein Urine Glucose (UA) Urine Ketones Urine Occult Blood Urine Nitrite Urine Bilirubin Urine Urobilinogen Ur Leukocyte Esterase Ur Microscopic Review Urine Culture Comments Urine HCG, Qual Stl C. diff Tox B Gene NEGATIVE PD MEDICAL DECISION MAKING - ED course Complexity details: reviewed results, re-evaluated patient, considered differential, d/w patient ED course: Patient was treated symptomatically with IV fluids and Zofran. She was worked up with labs And CT scan of the abdomen and pelvis, which were unremarkable. Patient was found to be feeling better and I feel she is stable for discharge home. We have discussed home management of the symptoms, as well as the usual indications for return and follow-up. Departure - Departure Disposition: 01 Home, Self Care Clinical Impression: Gastroenteritis Condition: Stable Instructions: ED Gastroenteritis Viral Prescriptions: Loperamide [Imodium] 2 mg PO BID PRN #10 PRN Reason: Diarrhea Ondansetron Odt [Zofran] 4 mg TL Q6H PRN #10 tablet PRN Reason: Nausea / Vomiting Comments: Your CT scan shows findings consistent with gastroenteritis, which is most likely viral in nature. Your labs look great. There is no evidence of pancreatitis or a problem with your liver. Please take the nausea medicine in the medication for diarrhea as needed. Be sure to get plenty of clear liquids. Follow-up with your primary care physician for further evaluation if you are not feeling better by the end of the weekend. Discharge Date/Time: 09/19/20 23:12
[2020-09-19 23:10] VITALS: BP 150/90
--- NOTE | 2020-09-20 09:29 | CT Report ---
PROCEDURE: Abdomen/Pelvis W INDICATIONS: R side abd pain, vomiting CONTRAST: IV CONTRAST: Optiray 320 ml: 100 PO CONTRAST: *NO PO CONTRAST TECHNIQUE: After the administration of contrast, 5 mm thick sections acquired from the diaphragms to the sym physis. 5 mm thick coronal and sagittal reformats were acquired. For radiation dose reduction, the following was used: automated exposure control, adjustment of mA and/or kV according to patient size . COMPARISON: None. FINDINGS: Image quality: Excellent. ABDOMEN: Lung bases: Lung bases are clear. Heart size is normal. Solid organs: There is hypoattenuation of the liver consistent with fatty infiltration. Gallbladder i s surgically absent. Biliary system is non dilated. The spleen is normal in size. Pancreas enhances normally without peripancreatic fat stranding or fluid collections. No adrenal nodules. Kidneys dem onstrate no hydronephrosis. A small linear calcification within the inferior pole the left kidney is redemonstrated, measuring up to 0.6 cm. The findings likely represent a nonobstructing renal stone. Peritoneum and bowel: Bowel loops demonstrate normal wall thickness and caliber. Mild prominence of the colonic wall in the descending and sigmoid colon is likely due to nondistention. The appendix is normal in appearance. Mild colonic diverticulosis is present without acute diverticulitis. No free fl uid or air. Nodes and vessels: No retroperitoneal or mesenteric adenopathy by size criteria. Aorta and inferior vena cava are normal in size. Miscellaneous: No ventral hernias. PELVIS: Genitourinary: Bladder wall thickness is normal. Miscellaneous: No inguinal hernias or adenopathy. Bones: No suspicious bony lesions. No vertebral body compression fractures. IMPRESSION: 1. No definite acute intra-abdominal abnormality. 2. Small calcification in the left kidney redemonstrated likely representing a nonobstructing renal s tone. 3. Colonic diverticulosis without acute diverticulitis. 4. No evidence of appendicitis. Reviewed by: Newton Payne MD on 09/20/2020 9:27 AM PDT Approved by: Newton Payne MD on 09/20/2020 9:27 AM PDT Station ID: [id number]
== END 2020-09-19 23:12 | disposition home or self-care (01) ==
LOC: ED 20:39
DX: K52.9 Noninfective gastroenteritis and colitis, unspecified (principal); Z90.49 Acquired absence of other specified parts of digestive tract; I10 Essential (primary) hypertension; E11.9 Type 2 diabetes mellitus without complications
CPT/HCPCS: 36415; 74177; 80053; 81003; 81025; 81599; 83690; 85025; 87493; 87798; 96374; 99284; Q9967; 81001; 87045; 87046; 87086

== ENCOUNTER 2022-11-16 11:25 | Emergency (ER) | payer MEDICAID, OTHER ==
[2022-11-16 12:06] LABS: BASOPHILS # (AUTO) 0.1 10^3/uL (0.0-0.1); BASOPHILS % (AUTO) 0.6 %; EOSINOPHILS # (AUTO) 0.1 10^3/uL (0.0-0.7); EOSINOPHILS % (AUTO) 0.7 %; HCT - HEMATOCRIT 37.1 % (37.0-47.0); HGB - HEMOGLOBIN 11.8 g/dL (12.0-16.0); LYMPHOCYTES # (AUTO) 2.5 10^3/uL (1.5-3.5); LYMPHOCYTES % (AUTO) 13.2 %; MEAN CORPUSCULAR HEMOGLOBIN 25.6 pg (27.0-31.0); MEAN CORPUSCULAR HGB CONC 31.8 g/dL (32.0-36.0); MEAN CORPUSCULAR VOLUME 80.5 fL (81.0-99.0); MEAN PLATELET VOLUME 9.4 fL (7.9-10.8); MONOCYTES # (AUTO) 1.3 10^3/uL (0.0-1.0); MONOCYTES % (AUTO) 6.7 %; NEUTROPHILS # (AUTO) 14.8 10^3/uL (1.5-6.6); NEUTROPHILS % (AUTO) 78.1 %; PLT - PLATELET COUNT 335 10^3/uL (130-450); RED BLOOD COUNT 4.61 10^6/uL (4.20-5.40); RED CELL DISTRIBUTION WIDTH 15.4 % (12.0-15.0); WHITE BLOOD COUNT 18.9 x10^3/uL (4.8-10.8)
--- OUTSIDE RECORDS SUMMARY | 2022-11-16 12:20 | EXTERNAL MEDICAL SUMMARY RPT | Continuity of Care Document ---
Author Name Unknown Address [address] [place] [address] Phone Organization [facility] Address [address] [place] [address] Phone Problems date description facility 2022-10-29 16:55 Benign neoplasm of left adrenal gland [facility] Results/Labs test date facility value unit notes
[2022-11-16 12:21] LABS: ALBUMIN 4.2 g/dL (3.2-5.5); ALBUMIN/GLOBULIN RATIO 1.1 (1.0-2.2); BILIRUBIN,TOTAL 0.3 mg/dL (0.2-1.0); CALCIUM 9.9 mg/dL (8.5-10.3); CREATININE 0.7 mg/dL (0.6-1.3); POTASSIUM 3.5 mmol/L (3.5-4.5)
[2022-11-16] MEDS ORDERED: cefTRIAXone 1 GM VIAL IM STA (13:37)
[2022-11-16] MEDS ORDERED: LIDOCAINE 1% 2 ML VIAL MC ONE (13:37)
[2022-11-16] MEDS ORDERED: AMOX/CLAV 875 MG/125 MG TABLET PO STA (13:37)
[2022-11-16] MEDS ORDERED: SULFAMETH/TRIMETH DS 800/160 MG TABLET PO STA (13:38)
--- NOTE | 2022-11-16 13:41 | ED Physician Documentation ---
History of Present Illness - Stated complaint Stated Complaint: PX,SWELLING,CHILLS - Chief complaint Chief Complaint: Ext Problem - History obtained from History obtained from: Patient - History of Present Illness Timing: How many days ago (3) Pain level max: 7 Pain level now: 7 - Additonal information Additional information: Patient is a 31-year-old female who presents to the emergency department with left lower extremity redness, swelling that started approximately 3 days ago. She states that she did have a fever at home but none today. The leg feels similar to the prior time that she had cellulitis. She initially failed clindamycin, was then admitted to the hospital and discharged on cephalexin. S he states that she had urticaria from the Keflex and this was stopped. Has not had a recurrent episode since that time. Denies any possibility of . Not breast-feeding. Nothing makes it better or worse. 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 HEENT: Chronic vision loss Psych: Anxiety, Panic attacks Musculoskeletal: None Derm: Herpes zoster - Past Surgical History Past Surgical History: Yes General: Cholecystectomy, Colonoscopy /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: Other HEENT: Tonsil/Adenoidectomy - Present Medications Home Medications: Ambulatory Orders Medication Instructions Recorded Confirmed Pregabalin [Lyrica] 200 mg PO TID 02/27/20 11/16/22 Amox/Clav 875/125 [Augmentin] 1 tab PO Q12H #20 tablet 11/16/22 Lisinopril/Hydrochlorothiazide 1 each PO DAILY 11/16/22 11/16/22 [Zestoretic 20-25 mg Tablet] Oxycodone HCl/Acetaminophen 1 - 2 each PO Q6H PRN #14 tablet 11/16/22 [Percocet 5-325 mg Tablet] MDD 6 tabs Sulfamethox/Trimeth 800/160 1 each PO BID #20 tablet 11/16/22 [Bactrim Ds 800/160] - Allergies Allergies/Adverse Reactions: Allergies Allergy/AdvReac Type Severity Reaction Status Date / Time cephalexin [From Keflex] Allergy Rash Verified 11/16/22 11:31 dextrose 5 % in water Allergy Rash Verified 11/16/22 13:50 [From Zyvox] linezolid [From Zyvox] Allergy Rash Verified 11/16/22 13:50 metronidazole [From Flagyl] Allergy projectile Verified 11/16/22 11:31 vomiting - Social History Does the pt smoke?: No Smoking Status: Never smoker Does the pt drink ETOH?: No Does the pt have substance abuse?: No - Immunizations Immunizations are current?: Yes Immunizations: TDAP >10years/unknown - POLST Patient has POLST: No PD ED PE NORMAL - Vitals Vital signs reviewed: Yes - General General: Alert and oriented X 3, No acute distress - HEENT HEENT: PERRL, Moist mucous membranes - Neck Neck: Supple, no meningeal sign - Cardiac Cardiac: RRR, Strong equal pulses - Respiratory Respiratory: No respiratory distress, Clear bilaterally - Abdomen Abdomen: Soft, Non tender, Non distended - Derm Derm: Warm and dry - Extremities Extremities: Other (Left lower extremity - Erythema, swelling to the left lower leg below the knee. Neurovascular intact. No crepitus. No ecchymosis.) - Neuro Neuro: Alert and oriented X 3 - Psych Psych: Normal mood, Normal affect Results - Vitals Vitals: Vital Signs - 24 hr 11/16/22 11/16/22 11/16/22 11:31 13:35 14:28 Temperature 37.4 C 37.3 C Heart Rate 107 H 91 88 Respiratory 18 18 18 Rate Blood Pressure 135/98 H 134/91 H 135/92 H O2 Saturation 100 99 100 Oxygen O2 Source Room air - Labs Labs: Laboratory Tests 11/16/22 11/16/22 11/16/22 11:54 11:54 11:57 WBC 18.9 H RBC 4.61 Hgb 11.8 L Hct 37.1 MCV 80.5 L MCH 25.6 L MCHC 31.8 L RDW 15.4 H Plt Count 335 MPV 9.4 Neut # (Auto) 14.8 H Lymph # (Auto) 2.5 [place] # (Auto) 1.3 H Eos # (Auto) 0.1 Baso # (Auto) 0.1 Absolute Nucleated RBC 0.00 Nucleated RBC % 0.0 Sodium 138 Potassium 3.5 Chloride 100 L Carbon Dioxide 28 Anion Gap 10.0 BUN 11 Creatinine 0.7 Estimated GFR (MDRD) 98 Glucose 134 H Lactic Acid 1.2 Calcium 9.9 Total Bilirubin 0.3 AST 17 ALT 17 Alkaline Phosphatase 78 Total Protein 8.0 Albumin 4.2 Globulin 3.8 Albumin/Globulin Ratio 1.1 Lipase 9 L Urine Color Urine Clarity Urine pH Ur Specific [place] Urine Protein Urine Glucose (UA) Urine Ketones Urine Occult Blood Urine Nitrite Urine Bilirubin Urine Urobilinogen Ur Leukocyte Esterase Ur Microscopic Review Urine Culture Comments 11/16/22 13:33 WBC RBC Hgb Hct MCV MCH MCHC RDW Plt Count MPV Neut # (Auto) Lymph # (Auto) [place] # (Auto) Eos # (Auto) Baso # (Auto) Absolute Nucleated RBC Nucleated RBC % Sodium Potassium Chloride Carbon Dioxide Anion Gap BUN Creatinine Estimated GFR (MDRD) Glucose Lactic Acid Calcium Total Bilirubin AST ALT Alkaline Phosphatase Total Protein Albumin Globulin Albumin/Globulin Ratio Lipase Urine Color DARK YELLOW Urine Clarity CLEAR Urine pH 6.5 Ur Specific [place] 1.015 Urine Protein NEGATIVE Urine Glucose (UA) NEGATIVE Urine Ketones NEGATIVE Urine Occult Blood NEGATIVE Urine Nitrite NEGATIVE Urine Bilirubin NEGATIVE Urine Urobilinogen 0.2 (NORMAL) Ur Leukocyte Esterase NEGATIVE Ur Microscopic Review NOT INDICATED Urine Culture Comments NOT INDICATED PD Medical Decision Making - ED course Complexity details: reviewed old records, reviewed results, considered differential, d/w patient Reviewed Lab Results: Patient does have an elevated white blood cell count, normal anion gap. Normal lactate. ED course: Patient with cellulitis left lower extremity. Afebrile here. Patient is well- appearing, nontoxic. Given a dose of Rocephin and we will start on Augmentin. The patient states her only allergies are to cephalexin and Flagyl. She states she can take penicillin without issue. We will place her on Bactrim as well. No history of allergy to sulfa. Patient counseled regarding signs and symptoms for which I believe and urgent re-evaluation would be necessary. Patient with good understanding of and agreement to plan and is comfortable going home at this time This document was made in part using voice recognition software. While efforts are made to proofread this document, sound alike and grammatical errors may occur. Departure - Departure Disposition: 01 Home, Self Care Clinical Impression: Cellulitis Qualifiers: Site of cellulitis: extremity Site of cellulitis of extremity: lower extremity Laterality: left Qualified Code(s): L03.116 - Cellulitis of left lower limb Condition: Good Instructions: ED Infec Skin Cellulitis Follow-Up: [facility] [Primary Care Provider] - Within 3 Days Prescriptions: Amox/Clav 875/125 [Augmentin] 1 tab PO Q12H #20 tablet Sulfamethox/Trimeth 800/160 [Bactrim Ds 800/160] 1 each PO BID #20 tablet Oxycodone HCl/Acetaminophen [Percocet 5-325 mg Tablet] 1 - 2 each PO Q6H PRN #14 tablet MDD 6 tabs PRN Reason: pain Comments: Please follow-up with your doctor in 3 days for a wound check. Take all antibiotics until gone. Please return if you worsen. Your prescriptions were sent to [facility] in [place]. I am prescribing a short course of narcotic pain medication for you. These are potentially dangerous and addictive medications that should be used carefully. These medications may constipate you. Take an [id number] stool softener (docusate) twice daily with plenty of water while taking these medications. If you go 24 hours without a bowel movement, take [id number] miralax, per package instructions. Do not drink or drive while taking these medications. If you received narcotic or sedating medications while in the emergency department, do not drive for 24 hours. Store this medication in a safe, secure place and out of reach of children. It is a violation of federal law to give or sell this medication to another person or to use in a manner other than prescribed. The ED will not refill narcotic prescriptions, including prescriptions lost or stolen. To dispose of unwanted medications: 1. [facility] [address] in [place] has a medication drop box. They accept prescription medications (in pill form) Wednesday through Wednesday 9:00 a.m. to 5:00 p.m. 2. The [facility] [employer] accepts prescription medications (in pill form only) for disposal year round. Call for more information. 3. Contact the [facility] for the next [facility] sponsored prescription drug collection event. , [phone], or [phone]; Forms: PCP List Discharge Date/Time: 11/16/22 14:35
[2022-11-16] MEDS ORDERED: oxyCODONE 5 MG TABLET PO STA (14:22)
[2022-11-16 14:36] VITALS: BP 135/92; O2SAT 100
[2022-11-16 14:38] LABS: BILIRUBIN,URINE NEGATIVE (NEGATIVE); GLUCOSE, URINE (UA) NEGATIVE (NEGATIVE); KETONES,URINE (UA) NEGATIVE (NEGATIVE); LEUKOCYTE ESTERASE, URINE NEGATIVE (NEGATIVE); NITRITE,URINE NEGATIVE (NEGATIVE); OCCULT BLOOD,URINE NEGATIVE (NEGATIVE); PH,URINE 6.5 PH (5.0-7.5); PROTEIN,URINE NEGATIVE (NEGATIVE); UROBILINOGEN,URINE 0.2 (NORMAL) E.U./dL (NORMAL)
[2022-11-16 14:39] LABS: CLARITY,URINE CLEAR (CLEAR)
== END 2022-11-16 14:35 | disposition home or self-care (01) ==
LOC: ED 11:25
DX: L03.116 Cellulitis of left lower limb (principal); I10 Essential (primary) hypertension; E11.9 Type 2 diabetes mellitus without complications; Z79.899 Other long term (current) drug therapy
CPT/HCPCS: 36415; 80053; 81003; 83605; 83690; 85025; 87040; 96372; 99283; A9270; 81001; 87086

== ENCOUNTER 2023-06-07 12:48 | Outpatient (CLI) | payer OTHER ==
--- NOTE | 2023-06-07 13:54 | Ultrasound Report ---
PROCEDURE: Renal (Retroperitoneal) INDICATIONS: LEFT RENAL CYST TECHNIQUE: Real-time scanning was performed of the retroperitoneal organs, with image documentation. COMPARISON: CT abdomen pelvis 09/19/2020. FINDINGS: Kidneys: Kidneys are normal in size. Right kidney measures 10.6 cm long; left kidney measures 11.5 cm long. Right renal cortical thickness is 1.5 cm; left renal cortical thickness is 1.4 cm. No carri d masses, hydronephrosis, or nephrolithiasis. Anechoic cyst at the left kidney measuring 2.1 cm. Bladder: Pre-void bladder volume is 30 mL. Post-void residual is 0 mL. Pre-void images demonstrate no intraluminal masses or stones. Ureteral jets are seen. Miscellaneous: No free abdominal fluid. IMPRESSION: 1. Anechoic cyst at the left kidney measuring 2.1 cm is benign. 2. No hydronephrosis. No post void residual. Reviewed by: Hu Carballo MD on 06/07/2023 1:52 PM PDT Approved by: Hu Carballo MD on 06/07/2023 1:52 PM PDT Station ID: [id number]
== END 2023-06-07 12:49 | disposition home or self-care (01) ==
LOC: DI 12:48
PROVIDERS: ATTEND Nurse Practitioner Family
DX: N28.1 Cyst of kidney, acquired (principal)